=== PATIENT | female | born 1970 | race Caucasian/White ===

== ENCOUNTER 2016-07-12 13:23 | Outpatient (CLI) | payer BC | END 2016-07-12 13:24 | disposition home or self-care (01) | DX: Z12.31 Encounter for screening mammogram for malignant neoplasm of breast (principal) ==

== ENCOUNTER 2016-07-12 13:26 | Outpatient (CLI) | payer BC | END 2016-07-12 13:27 | disposition home or self-care (01) | DX: N92.1 Excessive and frequent menstruation with irregular cycle (principal); D25.1 Intramural leiomyoma of uterus; N85.8 Other specified noninflammatory disorders of uterus; N83.202 Unspecified ovarian cyst, left side ==

== ENCOUNTER 2016-11-18 10:06 | Outpatient (CLI) | payer BC ==
[2016-11-18 10:57] LABS: BASOPHILS % (AUTO) 0.7 %; EOSINOPHILS # (AUTO) 0.3 10^3/uL (0.0-0.7); EOSINOPHILS % (AUTO) 4.9 %; HCT - HEMATOCRIT 38.4 % (37.0-47.0); HGB - HEMOGLOBIN 13.3 g/dL (12.0-16.0); LYMPHOCYTES % (AUTO) 36.4 %; MEAN CORPUSCULAR HEMOGLOBIN 30.6 pg (27.0-31.0); MEAN CORPUSCULAR HGB CONC 34.7 g/dL (32.0-36.0); MEAN CORPUSCULAR VOLUME 88.3 fL (81.0-99.0); MEAN PLATELET VOLUME 8.1 fL (7.9-10.8); MONOCYTES # (AUTO) 0.4 10^3/uL (0.0-1.0); MONOCYTES % (AUTO) 7.6 %; NEUTROPHILS # (AUTO) 2.8 10^3/uL (1.5-6.6); NEUTROPHILS % (AUTO) 50.4 %; NUCLEATED RED BLOOD CELLS AUTO 0.1 /100WBC; RED BLOOD COUNT 4.35 10^6/uL (4.20-5.40); RED CELL DISTRIBUTION WIDTH 13.3 % (12.0-15.0); UNCORRECTED WHITE BLOOD COUNT 5.5 x10^3/uL; WHITE BLOOD COUNT 5.5 x10^3/uL (4.8-10.8)
[2016-11-18 11:12] LABS: CREATININE 0.8 mg/dL (0.4-1.0); POTASSIUM 3.4 mmol/L (3.5-5.0)
== END 2016-11-18 10:07 | disposition home or self-care (01) ==
LOC: LAB 10:06
PROVIDERS: ATTEND Obstetrics & Gynecology
DX: N92.5 Other specified irregular menstruation (principal)
CPT/HCPCS: 36415; 80048; 85025; 86850; 86900; 86901

== ENCOUNTER 2016-11-20 06:11 | Day surgery (SDC) | payer BC ==
--- NOTE | 2016-11-18 11:06 | PREOP HISTORY & PHYSICAL ---
DATE OF ADMISSION/SURGERY: 11/18/2016. IDENTIFICATION: The patient is a 45-year-old G3, P3 female who complains of heavy painful periods. HISTORY OF PRESENT ILLNESS: The patient states over the last year she has had progressively worse periods with pain. She relates that she will flow 7 days with heavy bleeding and change a pad or tampon every 2-4 hours. She will also pass clots with this. She denies any association with passage of clots, as well as her periods. She also complains of pain associated with this, which she grades at roughly a 7/10. She is utilizing Motrin for pain control. She states that ultrasound showed evidence of 2 intramural fibroids, as well as thickened endometrium. She had an endometrial biopsy performed, which was noted to be negative. Upon questioning, the patient denies any difficulty with stress urinary incontinence. She relates her last child weighed 9 pounds 2 ounces. PAST MEDICAL HISTORY: Positive for asthma. She also has a history of having a left lung spontaneous pneumothorax. SURGICAL HISTORY: Right knee surgery, as well as surgery to both left and right wrists. ALLERGIES 1. IVP. 2. SHE DOES HAVE SOME ITCHING WITH PERCOCET. CURRENT MEDICATIONS: Tylenol. HABITS: The patient smokes 10 cigarettes per day. Denies the use of tetrahydrocannabinol, alcohol, or other drugs. SOCIAL HISTORY: The patient has been twice. Currently living with a boyfriend. 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 FAMILY HISTORY: Positive for depression. REVIEW OF SYSTEMS: She wears glasses, but is negative for any cardiac, pulmonary , GI, or musculoskeletal issues. PHYSICAL EXAMINATION GENERAL: A well-developed, well-nourished, white female in no acute distress at this time. VITAL SIGNS: Today are normal. She denies any depression. Blood pressure is 120/ 80. BMI is 22.6. HEENT: Pupils are equal, round. Extraocular muscles are intact. There is no evidence of any scleral icterus. Mouth is clear. Thyroid is not palpably enlarged. HEART: Regular rate and rhythm without murmurs. LUNGS: Alonso are clear without rales or wheezes. ABDOMEN: Soft, nontender without evidence of any organomegaly. There is evidence of laparoscopic scars from previous tubal ligation. PELVIC: Pelvic examination previously performed revealed a uterus, which was 8 cm. There was no evidence of large cystoceles or rectoceles at this time. The adnexa were nontender. IMPRESSION 1. Menorrhagia. 2. Dysmenorrhea. PLAN: At this particular time, we will schedule the patient for a laparoscopic- assisted vaginal hysterectomy. Will choose to utilize a vaginal approach for closing the vaginal cuff in that she is a smoker and I am concerned about wound healing. Risks and benefits explained to the patient including those, but not limited to bleeding, infection, injury to the pelvic organs, which include the uterus, tubes, ovaries, bowel, bladder, and ureters. She is aware of the potential for DVT with PE, as well as postoperative adhesions, which could cause pain, bowel obstruction. She is also aware that she will never be able to be and she has also been told that I will guarantee she will never have another period, but I cannot totally guarantee that her pelvic pain will resolve. JOB #: [id number] EXT JOB #:[id number] JEFFREY
[2016-11-20] MEDS ORDERED: ceFAZolin 2 GM/50 ML 50 ML IV ONE (06:24)
[2016-11-20 06:40] LABS: HCG UR QUAL NEGATIVE
[2016-11-20] MEDS ORDERED: LACTATED RINGERS 1,000 ML IV ONE ×4 (06:48→14:46)
[2016-11-20] MEDS ORDERED: KETAMINE 500 MG/10 ML VIAL IVP ONE (07:30)
[2016-11-20] MEDS ORDERED: PROPOFOL 200 MG/20 ML VIAL IVP ONE (07:30)
[2016-11-20] MEDS ORDERED: ACETAMINOPHEN 1,000 MG/100 ML VIAL IV ONE (07:30)
[2016-11-20] MEDS ORDERED: PHENYLEPHRINE 50 MG/5 ML VIAL IV ONE (07:30)
[2016-11-20] MEDS ORDERED: LIDOCAINE-MPF 2% 5 ML VIAL IM ONE (07:30)
[2016-11-20] MEDS ORDERED: KETOROLAC 30 MG/ML VIAL IVP ONE (07:30)
[2016-11-20] MEDS ORDERED: SUCCINYLCHOLINE 200 MG/10 ML VIAL IVP ONE (07:30)
[2016-11-20] MEDS ORDERED: ROCURONIUM 50 MG/5 ML VIAL IVP ONE (07:30)
[2016-11-20] MEDS ORDERED: GLYCOPYRROLATE 1 MG/5 ML VIAL IVP ONE (07:30)
[2016-11-20] MEDS ORDERED: ONDANSETRON 4 MG/2 ML VIAL IVP ONE (07:30)
[2016-11-20] MEDS ORDERED: MIDAZOLAM 2 MG/2 ML VIAL IVP ONE (07:30)
[2016-11-20] MEDS ORDERED: DEXAMETHASONE 4 MG/ML VIAL IVP ONE (07:30)
[2016-11-20] MEDS ORDERED: NEOSTIGMINE 1 MG/1 ML 10 ML MDV IVP ONE (07:30)
[2016-11-20] MEDS ORDERED: BUPIVACAINE 0.25%-EPI 1:200000 PF 30 ML VIAL SUBQ ONE ×2 (08:15)
[2016-11-20] MEDS: fentaNYL 100 MCG/2 ML VIAL ONE ×2 (10:20→10:30)
[2016-11-20] MEDS ORDERED: HYDROmorphone 1 MG/ML SYRINGE ONE (10:42)
[2016-11-20] MEDS: HYDROmorphone 1 MG/ML SYRINGE ONE ×3 (11:09→12:07)
[2016-11-20] MEDS ORDERED: ONDANSETRON 4 MG/2 ML VIAL ONE (11:29)
[2016-11-20] MEDS ORDERED: HYDROcod/ACETAM 5/325 MG TABLET ONE (12:43)
[2016-11-20 15:50] VITALS: BP 102/60
--- NOTE | 2016-11-21 03:40 | OPERATIVE REPORT ---
DATE OF SURGERY: 11/20/2016 00:00:00 PREOPERATIVE DIAGNOSES 1. Menorrhagia. 2. Dysmenorrhea. 3. Fibroid uterus. POSTOPERATIVE DIAGNOSES 1. Menorrhagia. 2. Dysmenorrhea. 3. Submucosal fibroid uterus. 4. Multiple intramural fibroids. NAME OF PROCEDURE: Laparoscopically assisted vaginal hysterectomy with bilateral salpingectomy and cyto. SURGEON: Kana Thomas MD. EDUCATIONAL TECHNOLOGY SPECIALIST: Madeline Bullard MD. ANESTHESIA: Nithin Holder, general via endotracheal tube. FINDINGS: From entering the abdominal cavity, there was evidence of bilateral tubal ligation. There were cysts on both ovaries indicating that they are still functioning. There was evidence of multiple subserosal, as well as intramural fibroids. Upon opening the uterus on the table postoperatively, there was evidence of a submucosal fibroid at one of the cornus. COMPLICATIONS: None. ESTIMATED BLOOD LOSS: Roughly 500 mL. However, this was not what was sensed by the surgeon or anesthesia. SPECIMENS TO PATHOLOGY: Uterus and tubes. PROCEDURE: Following adequate endotracheal anesthesia, the patient was placed in the dorsolithotomy position in [facility]. A timeout was performed, at which time the patient was identified by name, as well as date of . Her allergies were reviewed, as well as the procedure. Pelvic examination under anesthesia revealed a uterus, which is in the pelvic cavity, did not appear to be grossly enlarged. The ovaries were not palpable either. The patient was then prepped and draped in the usual fashion. Speculum was placed into the vagina, cervix visualized, grasped with a single-tooth tenaculum and then sounded to 8 cm. It was dilated up to size [address] trocar was placed under direct visualization. The ctc operator's gloves were changed. Following this, local anesthesia of 0.25% Marcaine was used in the subumbilical area. A stab wound was made with a #11 blade and then a 5 mm trocar was placed under direct visualization. The abdominal cavity was then insufflated with carbon dioxide and 2 other ports placed both left and right lower quadrants. Local anesthesia with 0.25% Marcaine was utilized, as well as an incision with a #11 blade. Both trocars were placed under direct visualization. At this point, the pelvis was inspected, the patient was placed in steep Trendelenburg. The right tube was grasped and the mesosalpinx was cauterized with electrocautery. Care was taken to place this cautery as close to the tube as possible to decrease risk of compromise to the ovarian vessels. This portion of the tube had a peritubal cyst , was placed in the anterior cul-de-sac. The mesosalpinx and the remaining tube were then cauterized and transected. The utero-ovarian ligament, as well as the round ligament were then cauterized and transected. The broad ligament was then cauterized and transected utilizing the LigaSure. This was carried down to and across the lower portion of the uterus and to dissect the bladder off the lower portion of the uterus. The posterior leaf of the broad ligament was likewise cauterized and transected. The uterine vessels were then cauterized and transected. The left hand side was treated in the identical fashion. This was carried all the way down to the internal os of the cervix. The bladder was then both bluntly and sharply dissected from the lower uterine segment and cervix. At this point, there was some oozing and bleeding noted from the arcades of vessels on the left hand side of the uterus. Attempt was used to cauterize these ; however, it was felt that doing an expeditious vaginal hysterectomy would be the appropriate maneuver. The patient's legs were then brought up, the Lane catheter was deflated and removed, the cervix was grasped with double tooth tenaculum both anteriorly and posteriorly. The cervix was circumscribed with electrocautery and then the posterior cul-de-sac was entered using Martinez scissors. The posterior cuff was then reefed with 0 Vicryl, the uterosacral ligaments were cross clamped and ligated bilaterally with Laisha stitches and clamps. At this point, the Metzenbaum scissors were utilized to dissect the bladder off the lower uterine segment all the way until the peritoneal cavity was entered. The transverse cervical ligaments were then cross clamped with Laisha clamps, divided using Martinez scissors, and ligated with Laisha stitches of #0 Vicryl. Then, 2 additional clamps were placed on either side of the lower uterine segment and then these were transected with Martinez scissors and ligated with Laisha stitches of #0 Vicryl in the uterus and then removed and set aside. At this point, a Pfeiffer suture was placed, starting at the posterior vagina on the left hand side and included the left transverse cervical ligament and transversing high across the cul-de-sac including the right transverse cervical ligament and exiting the posterior vagina. This was not tied at this time. A pursestring of #4-0 Monocryl was placed and then tied down and the apex of the vagina was closed using figure 8's of 0 Vicryl; 0 Vicryl was used because of its duration and the fact that she was a cigarette smoker. Pfeiffer sutures were pulled down snug and pulled the vagina up into the pelvic cavity. At this point , the abdominal cavity was reinsufflated with CO2, it was inspected, there was no evidence of any bleeding. Photographs were taken. The scope was removed, the trocars removed, the CO2 was allowed to escape, and then the incision was closed using 4-0 Monocryl subcuticular with Dermabond being placed on top of this. A cystoscopy was then performed. There was evidence of good jets of urine from both ureters. The procedure was then terminated. The patient tolerated the procedure well and was taken to recovery in stable condition. Sponge and needle counts were correct. JOB #: [id number] EXT JOB #:[id number] JEFFREY
== END 2016-11-20 06:12 | disposition home or self-care (01) ==
LOC: SDS 06:11
PROVIDERS: ATTEND Obstetrics & Gynecology
PROC: 0UTC7ZZ Resection of Cervix, Via Natural or Artificial Opening (ICD-10-PCS; 2016-11-20)
PROC: 0UT7FZZ Resection of Bilateral Fallopian Tubes, Via Natural or Artificial Opening With Percutaneous Endoscopic Assistance (ICD-10-PCS; 2016-11-20)
PROC: 0UT9FZZ Resection of Uterus, Via Natural or Artificial Opening With Percutaneous Endoscopic Assistance (ICD-10-PCS; principal; 2016-11-20 07:30)
DX: N92.0 Excessive and frequent menstruation with regular cycle (principal); N94.6 Dysmenorrhea, unspecified; D25.1 Intramural leiomyoma of uterus; D25.0 Submucous leiomyoma of uterus; J45.909 Unspecified asthma, uncomplicated; F17.210 Nicotine dependence, cigarettes, uncomplicated; Z81.8 Family history of other mental and behavioral disorders
CPT/HCPCS: 81025; 88307

== ENCOUNTER 2016-11-25 12:16 | Emergency (ER) | payer BC | END 2016-11-25 15:45 | disposition home or self-care (01) | DX: R10.2 Pelvic and perineal pain (principal); F17.200 Nicotine dependence, unspecified, uncomplicated ==

== ENCOUNTER 2018-11-12 09:13 | Outpatient (CLI) | payer OTHER ==
--- NOTE | 2018-11-13 10:20 | Mammography Report ---
Reason: SCREENING MAMMOGRAM FOR BREAST CANCER Procedure Date: 11/12/2018 Accession Number: [id number] / [id number] Procedure: MGN - Screening Mammo Dig Bilat CPT Code: FULL RESULT: EXAM: Screening Mammo Dig Bilat DATE: 11/12/2018 9:34 AM CLINICAL HISTORY: Screening encounter. No reported risk factors. TECHNIQUE: (B) - Bilateral CC and MLO views were obtained. COMPARISON: 07/12/2016. PARENCHYMAL PATTERN: (A) - The breast(s) demonstrate(s) scattered fibroglandular densities. FINDINGS: The right breast demonstrates a new focal asymmetry in the lower inner quadrant, 3.4 cm from the nipple on the MLO view and 4.9 cm from the nipple on the cc view. This finding requires additional spot views as well as possibly ultrasound for clarification, ideally with the aid of 3-D mammography. There are no suspicious masses, calcifications, or areas of distortion in the left breast. IMPRESSION: Incomplete examination. BI-RADS category 0. RECOMMENDATION: (ADDMU) - Additional views using both Mammography and Ultrasound recommended. Spot views and ultrasound of the right breast. BI-RADS CATEGORY: (0) - Incomplete Examination - need additional evaluation. STANDARD QUALIFYING STATEMENTS: 1. This examination was not reviewed with the aid of Computer-Aided Detection (CAD). 2. A negative or benign imaging report should not preclude biopsy if clinically suspicious findings are present. 3. Dense breasts may obscure an underlying neoplasm. 4. This examination was reviewed without the aid of 3D breast imaging (tomosynthesis).
== END 2018-11-12 09:14 | disposition home or self-care (01) ==
LOC: DI.N 09:13
PROVIDERS: ATTEND Family Medicine
DX: Z12.31 Encounter for screening mammogram for malignant neoplasm of breast (principal)
CPT/HCPCS: 77067

== ENCOUNTER 2018-11-25 11:04 | Outpatient (CLI) | payer OTHER ==
--- NOTE | 2018-11-25 13:04 | Mammography Report ---
Reason: ABNORMAL MAMMOGRAM Procedure Date: 11/25/2018 Accession Number: [id number] / [id number] Procedure: FABIANO - Diag Special Views Dig RT CPT Code: FULL RESULT: EXAM: Diag Special Views Dig RT, Breast Unilateral Limited RIGHT DATE: 11/25/2018 12:05 PM CLINICAL HISTORY: Follow-up abnormal mammogram RIGHT ADDITIONAL VIEWS TECHNIQUE: (R) - Right CC and MLO views were obtained. COMPARISON: Mammogram 11/12/2018 PARENCHYMAL PATTERN: (A) - The breasts demonstrate scattered fibroglandular densities bilaterally. FINDINGS: The density described on the prior mammogram report in the medial inferior right breast dissipates on additional imaging. A nodular density in the right upper outer quadrant approximately 2 to 3 cm from the nipple is more apparent on the additional views. RIGHT BREAST ULTRASOUND TECHNIQUE: Targeted ultrasound was performed of the right breast in the area of clinical concern at 11:00 o'clock and 2 to 3 cm distance from the nipple. Color Doppler was employed as appropriate. FINDINGS: Corresponding to the mammographic abnormality is a 4 x 4 x 5 cm anechoic avascular lesion with increased through transmission consistent with a cyst. IMPRESSION: Probably Benign. BI-RADS category 3. Right breast RECOMMENDATION: (6MOS) - Recommend 6 month follow-up exam. Right mammogram BI-RADS CATEGORY: (3) - Probably Benign. STANDARD QUALIFYING STATEMENTS: 1. This examination was not reviewed with the aid of Computer-Aided Detection (CAD). 2. A negative or benign imaging report should not preclude biopsy if clinically suspicious findings are present. 3. Dense breasts may obscure an underlying neoplasm. 4. This examination was reviewed with the aid of 3D breast imaging (tomosynthesis).
== END 2018-11-25 11:05 | disposition home or self-care (01) ==
LOC: DI 11:04
PROVIDERS: ATTEND Family Medicine
DX: N63.10 Unspecified lump in the right breast, unspecified quadrant (principal)
CPT/HCPCS: 76642

== ENCOUNTER 2019-03-02 08:48 | Outpatient (CLI) | payer OTHER ==
[2019-03-02] MEDS ORDERED: GADOBUTROL 10 MMOL/10 ML VIAL IVP ONE (10:09)
[2019-03-02] MEDS ORDERED: GADOBUTROL 10 MMOL/10 ML VIAL ONE (10:11)
--- NOTE | 2019-03-02 10:44 | MRI Report ---
Reason: TREMOR, COMMON MIGRAINE Procedure Date: 03/02/2019 Accession Number: [id number] / [id number] Procedure: MRI - Brain W/WO CPT Code: FULL RESULT: EXAM: MRI BRAIN WITHOUT AND WITH CONTRAST EXAM DATE: 03/02/2019 10:16 AM. CLINICAL HISTORY: TREMOR, MIGRAINE headaches. COMPARISON: None. TECHNIQUE: Multiplanar, multisequence T1-weighted and fluid-sensitive MR sequences of the brain were performed before and after administration of intravenous contrast. Sequences optimized for routine evaluation. Other: None. IV Contrast: Yes, without and with 8 mL Gadavist. FINDINGS: Brain Volume: Normal for age. Parenchyma: No acute hemorrhage, mass, or infarct. No white matter lesions identified. No abnormal enhancement. Ventricles/Cisterns: No hydrocephalus. No abnormal extra-axial fluid collection or hemorrhage. Orbits: Symmetric and unremarkable. Sella Turcica: Unremarkable. IAC: Symmetric and unremarkable. Vasculature: Normal signal flow void is seen in the major arterial structures at the skull base. The dural sinuses are patent and enhance normally. Sinuses: No acute sinus disease. Bones: No focal pathologic appearing marrow signal changes. Other: None. IMPRESSION: 1. Normal brain MRI. RADIA
== END 2019-03-02 08:49 | disposition home or self-care (01) ==
LOC: DI 08:48
PROVIDERS: ATTEND Family Medicine
DX: R25.1 Tremor, unspecified (principal); G43.009 Migraine without aura, not intractable, without status migrainosus
CPT/HCPCS: 70553; A9585

== ENCOUNTER 2019-04-17 16:24 | Outpatient (CLI) | payer OTHER ==
[2019-04-17] MEDS ORDERED: GADOBUTROL 15 MMOL/15 ML VIAL ONE (16:37)
[2019-04-17] MEDS ORDERED: GADOBUTROL 10 MMOL/10 ML VIAL ONE (17:43)
[2019-04-17] MEDS ORDERED: GADOBUTROL 10 MMOL/10 ML VIAL IVP ONE (17:52)
--- NOTE | 2019-04-18 06:38 | MRI Report ---
Reason: PARESTHESIAS, HYPERREFLEXIA, RYAN REFLEX POSIT Procedure Date: 04/17/2019 Accession Number: [id number] / [id number] Procedure: MRI - Cervical Spine W/WO CPT Code: Final Report FULL RESULT: EXAM: MRI CERVICAL SPINE WITHOUT AND WITH CONTRAST EXAM DATE: 04/17/2019 04:57 PM. CLINICAL HISTORY: PARESTHESIAS, HYPERREFLEXIA, RYAN REFLEX POSIT. COMPARISON: None. TECHNIQUE: Multiplanar, multisequence T1-weighted and fluid-sensitive sequences of the cervical spine before and after administration of intravenous contrast. Other: None. IV contrast: Gadavist, 10 mL. FINDINGS: Neurologic Structures: The visualized posterior fossa structures are unremarkable. No signal abnormality or pathologic enhancement in the visualized spinal cord. Alignment: No scoliosis or spondylolisthesis. Bone Marrow: No gross fractures or bone lesions. No marrow edema or abnormal enhancement. Interspace Levels/Facets: C1-C2: Unremarkable. C2-C3: Unremarkable. C3-C4: Unremarkable. C4-C5: Mild disc height loss is visualized. Posterior disk osteophyte complex minimally indents the ventral thecal sac. There is no significant central canal or neuroforaminal stenosis. C5-C6: Moderate disc height loss is visualized. Posterior disk osteophyte complex mildly indents the ventral thecal sac and abuts the spinal cord. AP canal diameter measures approximately 8 mm and there is partial effacement of CSF signal. Uncovertebral hypertrophy produces moderate bilateral foraminal stenosis. C6-C7: Mild disc height loss is visualized. Posterior disk osteophyte complex mildly indents the ventral thecal sac. Minimal central canal and neuroforaminal narrowing is noted. C7-T1: Unremarkable. Spinal Canal: No enhancing lesions within the spinal canal. No epidural abscess. Musculature: Normal. No edema, enhancement, or fatty atrophy. Other: IMPRESSION: 1. No evidence of acute pathology in the cervical spine. 2. Mild to moderate cervical spondylosis, as outlined in detail above, most pronounced at the C5-C6 level where findings produce moderate central canal and bilateral foraminal stenosis. No significant cord compression or evidence of compressive myelopathy. RADIA
--- NOTE | 2019-04-18 06:38 | MRI Report ---
Reason: PARESTHESIAS, HYPERREFLEXIA, RYAN REFLEX POSIT Procedure Date: 04/17/2019 Accession Number: [id number] / [id number] Procedure: MRI - Thoracic Spine W/WO CPT Code: Final Report FULL RESULT: EXAM: MRI THORACIC SPINE WITHOUT AND WITH CONTRAST EXAM DATE: 04/17/2019 06:14 PM. CLINICAL HISTORY: PARESTHESIAS, HYPERREFLEXIA, RYAN REFLEX POSIT. COMPARISONS: None. TECHNIQUE: Multiplanar, multisequence T1-weighted and fluid-sensitive sequences of the thoracic spine from C7 to L1 before and after administration of intravenous contrast. Other: None. IV contrast: Gadavist, 10 mL. FINDINGS: Spinal Cord: No signal abnormality or pathologic enhancement in the visualized spinal cord. Alignment: No scoliosis or spondylolisthesis. Bone Marrow: No gross fractures or bone lesion. No bone marrow edema or abnormal enhancement. Disk Levels/Facets: C7-T1: Unremarkable. T1-T2: Unremarkable. T2-T3: Unremarkable. T3-T4: Unremarkable. T4-T5: Unremarkable. T5-T6: Unremarkable. T6-T7: Unremarkable. T7-T8: Unremarkable. T8-T9: Unremarkable. T9-T10: Unremarkable. T10-T11: Unremarkable. T11-T12: Unremarkable. T12-L1: Unremarkable. Spinal Canal: No enhancing masses within the spinal canal. No epidural abscess. Musculature: Normal. No edema, enhancement, or fatty atrophy. Other: The visualized lungs, mediastinum, and abdominal cavity are unremarkable. IMPRESSION: 1. No evidence of acute pathology in the thoracic spine. RADIA
== END 2019-04-17 16:25 | disposition home or self-care (01) ==
LOC: DI 16:24
PROVIDERS: ATTEND Psychiatry & Neurology Neurology
DX: M47.812 Spondylosis without myelopathy or radiculopathy, cervical region (principal); M48.02 Spinal stenosis, cervical region; R20.2 Paresthesia of skin; R29.2 Abnormal reflex; R39.198 Other difficulties with micturition
CPT/HCPCS: 72156; 72157; A9585

== ENCOUNTER 2019-05-28 17:48 | Outpatient (CLI) | payer OTHER ==
--- NOTE | 2019-05-29 10:32 | MRI Report ---
Reason: STENOSIS W/ NEUROGENIC CLAUDICATION, RADICULOPATHY Procedure Date: 05/28/2019 Accession Number: [id number] / [id number] Procedure: MRI - Lumbar Spine W/O CPT Code: Final Report FULL RESULT: EXAM: MRI LUMBAR SPINE WITHOUT CONTRAST EXAM DATE: 05/28/2019 06:30 PM. CLINICAL HISTORY: Stenosis with neurogenic claudication, radiculopathy. COMPARISON: THORACIC SPINE W/WO 04/17/2019 5:21 PM. TECHNIQUE: Multiplanar, multisequence T1-weighted and fluid-sensitive sequences of the lumbar spine from T12 to S1 without contrast. Other: None. FINDINGS: No abnormal signal is seen in the conus medullaris. No suspicious marrow replacement is seen. Facet/ligamentum flavum hypertrophy is seen throughout the lumbar spine. This is moderate at L3-L4 and L4-L5. There is patchy T2 hypointense signal in the disk space from L3-S1 without significant loss of disk space height. L1-L3: No posterior disk protrusion. L3-L4: Minimal circumferential disk protrusion. L4-L5: Minimal to mild circumferential disk protrusion. L5-S1: Minimal circumferential disk protrusion. No central canal or foraminal stenosis is present. There is a well-circumscribed 6-7 mm T2 hyperintensity which is seen just posterior to the right L4 nerve root as it exits the L4-L5 foramen. This is seen just lateral to the facet joint. There is no mass effect on the right L4 nerve root. IMPRESSION: 1. Minimal degenerative disk disease at L3-L4 and L5-S1 and minimal to mild degenerative disk disease at L4-L5. 2. No central canal or foraminal stenosis. 3. No abnormal signal is seen in the conus medullaris. 4. A synovial cyst of the right facet joint is favored over a nerve root sleeve cyst at L4-L5 5. Moderate facet/ligamentum flavum hypertrophy in the mid and lower lumbar spine greatest at L3-L4 and L4-L5. Comment: The following findings are so common in adults without low back pain that while we report their presence, they must be interpreted with caution and in the context of the clinical situation. (Reference Chavezk et al, Spine 2001) Prevalence of findings in patients without low back pain: Disk degeneration (any evidence): 92% Disk desiccation/T2 signal loss: 83% Disk height loss: 56% Disk bulge: 64% Disk protrusion: 32% Annular tear/high intensity zone: 38% RADIA
== END 2019-05-28 17:49 | disposition home or self-care (01) ==
LOC: DI 17:48
PROVIDERS: ATTEND Electrodiagnostic Medicine
DX: M51.26 Other intervertebral disc displacement, lumbar region (principal); M51.27 Other intervertebral disc displacement, lumbosacral region; M51.36 Other intervertebral disc degeneration, lumbar region; M51.37 Other intervertebral disc degeneration, lumbosacral region; M47.816 Spondylosis without myelopathy or radiculopathy, lumbar region
CPT/HCPCS: 72148

== ENCOUNTER 2019-06-23 12:30 | Outpatient (CLI) | payer OTHER ==
--- NOTE | 2019-06-23 14:43 | Mammography Report ---
Reason: ABN MAMMO 6 MO FU - RT BREAST NODULE Procedure Date: 06/23/2019 Accession Number: [id number] / [id number] Procedure: FABIANO - Diagnostic Dig RT CPT Code: Final Report FULL RESULT: EXAM: Diagnostic Dig RT DATE: 06/23/2019 1:10 PM CLINICAL HISTORY: Diagnostic examination. TECHNIQUE: (R) - Right CC and MLO views were obtained. Right spot CC and right ML images are obtained. Focused right breast ultrasound is performed. COMPARISON: 11/25/2018 through 07/12/2016. PARENCHYMAL PATTERN: (A) - The breast(s) demonstrate(s) scattered fibroglandular densities. FINDINGS: Sonographically, in the upper outer right breast at 11-12 o'clock is a 0.5 cm overall size well-circumscribed septated cluster of cysts with increased through transmission and no convincing solid component which individually measure between 0.2 and 0.3 cm approximately 2 to 3 cm from the nipple. Mammographically on right MLO image 47 right CC image 43, the corresponding nodule has not significantly changed but is better visualized on today's exam, probably benign. There are no suspicious masses, calcifications, or areas of distortion. IMPRESSION: Probably Benign. BI-RADS category 3. RECOMMENDATION: (6MOS) - Recommend 6 month follow-up exam. At the time of left breast annual screening mammography, ultrasound and mammogram. BI-RADS CATEGORY: (3) - Probably Benign. STANDARD QUALIFYING STATEMENTS: 1. This examination was not reviewed with the aid of Computer-Aided Detection (CAD). 2. A negative or benign imaging report should not preclude biopsy if clinically suspicious findings are present. 3. Dense breasts may obscure an underlying neoplasm. 4. This examination was reviewed with the aid of 3D breast imaging (tomosynthesis).
== END 2019-06-23 12:31 | disposition home or self-care (01) ==
LOC: DI 12:30
PROVIDERS: ATTEND Family Medicine
DX: N63.10 Unspecified lump in the right breast, unspecified quadrant (principal); R92.8 Other abnormal and inconclusive findings on diagnostic imaging of breast
CPT/HCPCS: 76642

== ENCOUNTER 2019-07-02 09:57 | Outpatient (CLI) | payer OTHER ==
[2019-07-02 12:42] LABS: BASOPHILS % (AUTO) 0.6 %; EOSINOPHILS # (AUTO) 0.2 10^3/uL (0.0-0.7); EOSINOPHILS % (AUTO) 2.3 %; LYMPHOCYTES # (AUTO) 1.7 10^3/uL (1.5-3.5); LYMPHOCYTES % (AUTO) 25.1 %; MEAN CORPUSCULAR HEMOGLOBIN 30.4 pg (27.0-31.0); MEAN CORPUSCULAR HGB CONC 32.9 g/dL (32.0-36.0); MEAN CORPUSCULAR VOLUME 92.4 fL (81.0-99.0); MEAN PLATELET VOLUME 9.5 fL (7.9-10.8); MONOCYTES # (AUTO) 0.5 10^3/uL (0.0-1.0); MONOCYTES % (AUTO) 7.6 %; NEUTROPHILS # (AUTO) 4.4 10^3/uL (1.5-6.6); NEUTROPHILS % (AUTO) 63.8 %; PLT - PLATELET COUNT 247 10^3/uL (130-450); RED CELL DISTRIBUTION WIDTH 13.1 % (12.0-15.0); WHITE BLOOD COUNT 6.9 x10^3/uL (4.8-10.8)
[2019-07-02 13:13] LABS: ALBUMIN 4.2 g/dL (3.2-5.5); ALBUMIN/GLOBULIN RATIO 1.6 (1.0-2.2); BILIRUBIN,TOTAL 0.3 mg/dL (0.2-1.0); CALCIUM 9.1 mg/dL (8.5-10.3); CREATININE 0.8 mg/dL (0.4-1.0); MAGNESIUM 2.3 mg/dL (1.7-2.8); PHOSPHORUS 2.5 mg/dL (2.5-4.6); TOTAL PROTEIN 6.8 g/dL (6.7-8.2)
== END 2019-07-02 23:59 | disposition home or self-care (01) ==
LOC: LAB.WCP 09:57
PROVIDERS: ATTEND Family Medicine
DX: Z00.00 Encounter for general adult medical examination without abnormal findings (principal); R60.9 Edema, unspecified; R07.9 Chest pain, unspecified
CPT/HCPCS: 36415; 80053; 83735; 84100; 84443; 85025

== ENCOUNTER 2019-07-14 12:53 | Outpatient (CLI) | payer OTHER ==
[2019-07-14 14:00] LABS: CRP - C-REACTIVE PROTEIN < 1.0 mg/dL (0-1.0); URIC ACID 3.3 mg/dL (2.6-7.2)
[2019-07-14 14:11] LABS: RHEUMATOID FACTOR NEGATIVE (Negative)
== END 2019-07-14 12:54 | disposition home or self-care (01) ==
LOC: LAB 12:53
PROVIDERS: ATTEND Family Medicine
DX: M25.50 Pain in unspecified joint (principal)
CPT/HCPCS: 36415; 84550; 85651; 86140; 86200; 86430

== ENCOUNTER 2019-07-14 12:58 | Outpatient (CLI) | payer OTHER ==
--- NOTE | 2019-07-16 14:15 | XRAY Report ---
Reason: BILAT KNEE PAIN Procedure Date: 07/14/2019 Accession Number: [id number] / [id number] Procedure: XR - Knee 2 View BILAT CPT Code: Final Report FULL RESULT: EXAMS: 1. RIGHT KNEE RADIOGRAPHY 2. LEFT KNEE RADIOGRAPHY EXAM DATE:07/14/2019 01:32 PM. CLINICAL HISTORY:Bilateral knee pain. COMPARISON: None. TECHNIQUE: 2 views each. FINDINGS: There is mild narrowing of the medial compartments of the knees. No significant osteophytic spurring. No suprapatellar joint effusions. No fractures. No chondrocalcinosis or subcutaneous radiopaque foreign bodies. IMPRESSION: Mild degenerative changes at the medial compartments of the knees. RADIA
== END 2019-07-14 12:59 | disposition home or self-care (01) ==
LOC: DI 12:58
PROVIDERS: ATTEND Family Medicine
DX: M17.0 Bilateral primary osteoarthritis of knee (principal); M25.50 Pain in unspecified joint
CPT/HCPCS: 36415; 73565; 84550; 85651; 86140; 86200; 86430

== ENCOUNTER 2019-09-30 08:00 | Outpatient (CLI) | payer OTHER ==
[2019-09-30 18:21] LABS: CALCIUM 9.7 mg/dL (8.5-10.3); CREATININE 0.9 mg/dL (0.4-1.0)
== END 2019-09-30 23:59 | disposition home or self-care (01) ==
LOC: LAB.WCP 08:00
PROVIDERS: ATTEND Family Medicine
DX: R06.9 Unspecified abnormalities of breathing (principal)
CPT/HCPCS: 36415; 80048

== ENCOUNTER 2019-12-27 15:10 | Emergency (ER) | payer OTHER ==
[2019-12-27] MEDS ORDERED: HYDROcod/ACETAM 5/325 MG TABLET PO STA (15:34)
--- NOTE | 2019-12-27 15:37 | ED Physician Documentation ---
History of Present Illness - Stated complaint Stated Complaint: LT KNEE PX - Chief complaint Chief Complaint: Ext Problem - History obtained from History obtained from: Patient - Additonal information Additional information: She had several months worth of worsening knee pain. Especially on the left. She was seen here 2 days ago and It was felt that she had a meniscal tear. She had x-rays showing arthritis 6 months ago. Pain is worse over the last 2 days with worse swelling. She can barely walk. There is no fevers or chills. 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 : None HEENT: Other Psych: None Musculoskeletal: Osteoarthritis Derm: None - Past Surgical History Past Surgical History: Yes Ortho: Arthroscopic surgery, Other /CASTING PLUG ASSEMBLER: Tubal ligation, Hysterectomy - Present Medications Home Medications: Ambulatory Orders Medication Instructions Recorded Confirmed Acetaminophen [Tylenol] 650 mg PO Q6H PRN 11/18/16 11/20/16 Ciprofloxacin HCl [Cipro] 500 mg PO BID #14 tablet 11/25/16 Fluconazole [Diflucan] 150 mg PO ONCE #1 tablet 11/25/16 Hydrocodone/Acetaminophen 1 each PO Q6H PRN #15 tablet 11/25/16 [Hydrocodon-Acetaminophn 10-325] Ibuprofen [Motrin] 1 tab TID PRN 11/25/16 11/25/16 Stool Softener 11/25/16 metroNIDAZOLE [Flagyl] 500 mg PO TID #20 tablet 11/25/16 Albuterol Sulf [Ventolin Hfa 1 - 2 puffs INH Q4HR PRN #1 inhaler 09/29/17 Inhaler] Cetirizine [ZyrTEC] 10 mg PO DAILY #15 tablet 09/29/17 Famotidine [Pepcid] 20 mg PO ONCE #15 tablet 09/29/17 dexAMETHasone [Decadron] 4 mg PO DAILY #5 tablet 09/29/17 Meloxicam [Mobic] 15 mg PO DAILY PRN #20 tablet 12/25/19 Hydrocodone/Acetaminophen 1 - 2 tab PO Q6H PRN #20 tablet 12/27/19 [Hydrocodone-Acetamin 5-325 mg] - Allergies Allergies/Adverse Reactions: Allergies Allergy/AdvReac Type Severity Reaction Status Date / Time contrast dye Allergy Unknown Rash Uncoded 12/25/19 16:30 - Social History Does the pt smoke?: Yes Smoking Status: Current every day smoker Does the pt drink ETOH?: Yes Does the pt have substance abuse?: No - Immunizations Immunizations are current?: Yes - POLST Patient has POLST: No PD ED PE NORMAL - Vitals Vital signs reviewed: Yes - General General: Alert and oriented X 3, No acute distress - Extremities Extremities: Other (There is a modest effusion of the left knee, tender over the medial joint line. A lot of pain with both MCL and grind testing.) - Neuro Neuro: Alert and oriented X 3, Normal speech Results - Vitals Vitals: Vital Signs - 24 hr 12/27/19 12/27/19 15:12 16:32 Temperature 37.5 C Heart Rate 75 59 L Respiratory 18 Rate Blood Pressure 122/79 125/77 O2 Saturation 97 97 Oxygen O2 Source Room air - Rads (name of study) L knee XR Radiology: EMP read contemporaneously (mild OA) PD MEDICAL DECISION MAKING - ED course ED course: 49-year-old woman with a left knee internal derangement. X-rays showing mild osteoarthritis. We will give some pain medication on top of the anti- inflammatories she Placido has and she has an appointment with orthopedics. Departure - Departure Disposition: 01 Home, Self Care Clinical Impression: Injury of meniscus of left knee Qualifiers: Encounter type: initial encounter Qualified Code(s): S83.8X2A - Sprain of other specified parts of left knee, initial encounter Condition: Good Record reviewed to determine appropriate education?: Yes Instructions: ED Meniscal Injury Knee Poss Prescriptions: Hydrocodone/Acetaminophen [Hydrocodone-Acetamin 5-325 mg] 1 - 2 tab PO Q6H PRN #20 tablet PRN Reason: Pain Comments: Follow-up with the orthopedic surgeon as scheduled. You can use the prescription pain medication in addition to the anti-inflammatory that you were given the other day. Do not drive or drink or drive with this prescription. Return for new or worsening symptoms. You can walk and bear weight as tolerated using the splint you already have. X-rays showed mild osteoarthritis of the knee, no this study would not identify a specific meniscal injury. Forms: Activity restrictions Discharge Date/Time: 12/27/19 16:38
--- NOTE | 2019-12-27 16:19 | XRAY Report ---
PROCEDURE: Knee 4 View LT INDICATIONS: L knee pain TECHNIQUE: 4 views of the left knee(s) were acquired. COMPARISON: None. FINDINGS: Bones: No fractures or dislocations. No suspicious bony lesions. Mild tricompartmental periarticul ar osteophyte formation. Soft tissues: No joint effusion. No suspicious soft tissue calcifications. IMPRESSION: Mild osteoarthritis. No acute fracture. No osseous lesion. If symptoms and/or clinical s uspicion for pathology continue, further assessment with repeat plain films, or advanced imaging (e.g ., CT, MRI, or bone scan) is recommended for further assessment. Reviewed by: Lorrie Arechiga MD on 12/27/2019 4:18 PM PDT Approved by: Lorrie Arechiga MD on 12/27/2019 4:18 PM PDT Station ID: [id number]
[2019-12-27 16:38] VITALS: BP 125/77
== END 2019-12-27 16:38 | disposition home or self-care (01) ==
LOC: ED 15:10
DX: S83.8X2A Sprain of other specified parts of left knee, initial encounter (principal); X58.XXXA Exposure to other specified factors, initial encounter; M17.12 Unilateral primary osteoarthritis, left knee; F17.200 Nicotine dependence, unspecified, uncomplicated
CPT/HCPCS: 73564; 99283; A9270

== ENCOUNTER 2020-03-24 12:30 | Outpatient (CLI) | payer OTHER ==
--- NOTE | 2020-03-27 16:39 | Ultrasound Report ---
LIMITED ULTRASOUND OF RIGHT BREAST: 03/24/2020 CLINICAL: Patient returns for additional imaging over a suspected mass in the right breast. Comparison is made to exams dated: 03/24/2020 mammogram, 06/23/2019 mammogram, 06/23/2019 ultrasound, 11/25/2018 mammogram, 11/12/2018 mammogram, and 11/25/2018 ultrasound - [facility]. Color flow and real-time ultrasound of the right breast 3 o'clock and 12 o'clock regions were perform ed on the areas of interest. There is a 0.3 cm x 0.4 cm x 0.4 cm oval cyst with a septated internal wall in the right breast at 12 o'clock anterior depth. This oval cyst is hypoechoic with a well-defined boundary and posterior aco ustic enhancement. This abnormality is not significantly changed and correlates with mammography fin dings. Color flow imaging demonstrates that there is no vascularity present. IMPRESSION: PROBABLY BENIGN The 0.3 cm x 0.4 cm x 0.4 cm oval cyst in the right breast is consistent with a complicated cyst and is probably benign. Follow-up mammogram and ultrasound in 6 months is recommended. A follow-up mammogram and an ultrasound in 6 months are recommended to demonstrate stability. Patien t will be due for screening mammography of the contralateral breast at that time. This exam was interpreted at Station ID: [id number]. Electronically Signed By: Heber Can M.D. ddp/:03/24/2020 15:25:30 Ultrasound BI-RADS: 3 Probably benign BI-RADS CATEGORY: (3) - 3 Mammo and [place] [id number] 6 month follow-up LATERALITY: (B)
--- NOTE | 2020-03-27 16:39 | Mammography Report ---
BILATERAL DIGITAL DIAGNOSTIC MAMMOGRAM 3D/2D: 03/24/2020 CLINICAL: Patient returns today to evaluate a focal asymmetry in the right breast. Comparison is made to exams dated: 06/23/2019 mammogram, 06/23/2019 ultrasound, 11/25/2018 mammogram, 11/25/2018 ultrasound, 11/12/2018 mammogram, and 07/12/2016 mammogram - [facility]. Ther e are scattered fibroglandular elements in both breasts. There is an oval low density asymmetry with an indistinct margin in the right breast at 1 o'clock ant erior depth. This is not significantly changed. No other significant masses, calcifications, or other findings are seen in either breast. IMPRESSION: INCOMPLETE: NEEDS ADDITIONAL IMAGING EVALUATION The oval low density asymmetry in the right breast is indeterminate. An ultrasound is recommended. This exam was interpreted at Station ID: [id number]. NOTE: For mammograms, a report in lay terms will be sent to the patient. Approximately 15% of breast malignancies will not be visualized mammographically. In the management of a palpable breast mass, a negative mammogram must not discourage biopsy of a clinically suspicious lesion. Electronically Signed By: Heber Can M.D. ddp/penrad:03/24/2020 13:50:42 ACR BI-RADS Category 0: Incomplete 3340F PARENCHYMAL PATTERN: (A) - The breast(s) demonstrate(s) scattered fibroglandular densities. BI-RADS CATEGORY: (0) - 0 Ultrasound [id number] Immediate follow-up LATERALITY: (B)
== END 2020-03-24 12:31 | disposition home or self-care (01) ==
LOC: DI 12:30
PROVIDERS: ATTEND Family Medicine
DX: N60.01 Solitary cyst of right breast (principal)
CPT/HCPCS: 76642; 77066

== ENCOUNTER 2020-06-15 13:50 | Outpatient (CLI) | payer OTHER ==
--- NOTE | 2020-06-15 17:09 | MRI Report ---
PROCEDURE: Knee LT W/O INDICATIONS: LT KNEE SPRAIN, LT KNEE INTERNAL DERANGEMENT TECHNIQUE: Noncontrast sagittal PD fast spin echo and T2 fast spin echo with fat saturation, sagittal 3-D gradie nt sequence with fat saturation; coronal T1 spin echo and PD fast spin echo with fat saturation, and axial PD fast spin echo with fat saturation through the knee. COMPARISON: None. FINDINGS: Image quality: Excellent. Menisci: The medial and lateral menisci demonstrate normal morphology and internal signal. The meni scal root ligaments appear intact. Cruciate ligaments: The anterior and posterior cruciate ligaments appear intact. Medial structures: The medial collateral ligament appears intact. The posterior oblique ligament, s emimembranosus tendon insertions, and oblique popliteal ligament, and meniscocapsular junction appear intact. Visualized portions of the pes anserinus tendons appear normal. No abnormal bursal fluid. Lateral structures: The lateral collateral ligament, long and short heads of the biceps femoris tend on appear intact. The popliteus tendon appears normal; the popliteofibular ligament appears intact. The posterosuperior and anteroinferior popliteomeniscal fascicles appear intact. The arcuate and fa bellofibular ligaments appear intact, around the lateral inferior geniculate artery. Iliotibial band appears normal. Anterior structures: The quadriceps and patellar tendons appear intact. Patellar alignment is alfred l. No femoral trochlear dysplasia or ventral trochlear prominence. No edema in the infrapatellar fa t pad. Bones and cartilage: No bone marrow contusions or fractures. The cartilage of the medial and latera l femorotibial compartments, as well as the patellofemoral compartment, appears normal in thickness. Joint space: There is physiologic knee joint fluid. No Guallpa?s cyst. Normal appearing synovial pli are incidentally noted. IMPRESSION: This is a normal study. Reviewed by: Prem Reeves MD on 06/15/2020 5:07 PM PST Approved by: Prem Reeves MD on 06/15/2020 5:07 PM PST Station ID: [id number]
== END 2020-06-15 13:51 | disposition home or self-care (01) ==
LOC: DI 13:50
PROVIDERS: ATTEND Physician Assistant
DX: M17.12 Unilateral primary osteoarthritis, left knee (principal); M94.262 Chondromalacia, left knee; M71.22 Synovial cyst of popliteal space [Baker], left knee; M23.92 Unspecified internal derangement of left knee; S83.8X2A Sprain of other specified parts of left knee, initial encounter

== ENCOUNTER 2021-04-19 23:10 | Outpatient (CLI) | payer OTHER | END 2021-04-19 23:59 | disposition critical access hospital (66) | LOC: EMS 23:10 | DX: R10.30 Lower abdominal pain, unspecified (principal) | CPT/HCPCS: A0425; A0427 ==

== ENCOUNTER 2021-04-19 23:29 | Day surgery (SDC) | payer OTHER ==
--- NOTE | 2021-04-19 23:41 | ED Physician Documentation ---
PD HPI ABD PAIN - Stated complaint Stated Complaint: ABD PAIN - Chief complaint Chief Complaint: Abd Pain - History obtained from History obtained from: Patient, EMS - History of Present Illness Timing - onset: Enter time (20:30), Today Timing - details: Abrupt onset Pain level now: 6 Quality: Pain Location: All over / everywhere (predominantly periumbilical and RLQ) Improved by: Laying still Worsened by: Moving, Breathing, Palpation Associated symptoms: Nausea. No: Fever, Vomiting, Diarrhea, Constipation Similar symptoms before: Has not had sx before Recently seen: Not recently seen - Additional information Additional information: BIBA for abdominal pain that is diffuse but predominantly periumbilical and RLQ. The pain woke her from sleep at 8:30 PM tonight. She had gone to sleep at 4:30 PM and felt well at that time. Denies h/o similar symptoms. Review of Systems Constitutional: reports: Reviewed and negative Eyes: reports: Reviewed and negative Ears: reports: Reviewed and negative Nose: reports: Reviewed and negative Throat: reports: Reviewed and negative Cardiac: reports: Reviewed and negative Respiratory: reports: Reviewed and negative GI: reports: Abdominal Pain, Nausea. 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 : None HEENT: Other Psych: None Musculoskeletal: Osteoarthritis Derm: None - Past Surgical History Past Surgical History: Yes Ortho: Arthroscopic surgery, Other /COMPOSITION SIDING WORKER: Tubal ligation, Hysterectomy - Present Medications Home Medications: Ambulatory Orders Medication Instructions Recorded Confirmed Albuterol Sulf [Ventolin Hfa 1 - 2 puffs INH Q4HR PRN #1 inhaler 09/29/17 04/19/21 Inhaler] buPROPion [Wellbutrin Sr] 150 mg PO DAILY 04/19/21 04/19/21 Amox/Clav 875/125 [Augmentin 1 tablet PO Q12H 2 Days #4 tablet 04/20/21 875/125 Tab] Docusate Sodium 100Mg Capsule 200 mg PO DAILY #10 cap 04/20/21 [Colace 100Mg Capsule] Ondansetron Odt [Zofran Odt] 4 mg TL Q6H PRN #10 tablet 04/20/21 oxyCODONE [Roxicodone] 5 mg PO Q4-6H PRN #10 tablet 04/20/21 - Allergies Allergies/Adverse Reactions: Allergies Allergy/AdvReac Type Severity Reaction Status Date / Time contrast dye Allergy Unknown Rash Uncoded 04/20/21 06:21 - Social History Does the pt smoke?: Yes Smoking Status: Current every day smoker Does the pt drink ETOH?: Yes Does the pt have substance abuse?: No - Immunizations Immunizations are current?: Yes - POLST Patient has POLST: No PD ED PE NORMAL - Vitals Vital signs reviewed: Yes - General General: Alert and oriented X 3, Well developed/nourished, Other (appears to be in painful distress) - HEENT HEENT: Other (tacky/pasty mucous membranes) - Neck Neck: Supple, no meningeal sign - Cardiac Cardiac: RRR, No murmur, No gallop, No rub - Respiratory Respiratory: No respiratory distress, Clear bilaterally - Abdomen Abdomen: Soft, Non distended, Other (diffuse TTP with rebound and guarding) - Back Back: No CVA TTP - Derm Derm: Normal color, Warm and dry Results - Vitals Vitals: Vital Signs - 24 hr 04/19/21 04/20/21 04/20/21 23:35 02:12 05:27 Temperature 37.4 C 37.1 C Heart Rate 83 81 84 Respiratory 16 18 16 Rate Blood Pressure 142/89 H 115/74 117/76 O2 Saturation 96 95 94 Oxygen O2 Source Room air - Labs Labs: Laboratory Tests 04/20/21 04/20/21 04/20/21 00:15 00:15 01:25 WBC 11.7 H RBC 4.35 Hgb 13.4 Hct 39.7 MCV 91.3 MCH 30.8 MCHC 33.8 RDW 12.5 Plt Count 214 MPV 9.1 Neut # (Auto) 9.3 H Lymph # (Auto) 1.4 L [place] # (Auto) 0.8 Eos # (Auto) 0.2 Baso # (Auto) 0.0 Absolute Nucleated RBC 0.00 Nucleated RBC % 0.0 Sodium 136 Potassium 4.0 Chloride 103 Carbon Dioxide 24 Anion Gap 9.0 BUN 16 Creatinine 0.9 Estimated GFR (MDRD) 66 L Glucose 107 H Calcium 8.9 Total Bilirubin 0.3 AST 18 ALT 19 Alkaline Phosphatase 55 Total Protein 6.3 L Albumin 3.8 Globulin 2.5 Albumin/Globulin Ratio 1.5 Lipase 35 Urine Color YELLOW Urine Clarity CLEAR Urine pH 7.0 Ur Specific [place] 1.020 Urine Protein NEGATIVE Urine Glucose (UA) NEGATIVE Urine Ketones NEGATIVE Urine Occult Blood NEGATIVE Urine Nitrite NEGATIVE Urine Bilirubin NEGATIVE Urine Urobilinogen 0.2 (NORMAL) Ur Leukocyte Esterase NEGATIVE Ur Microscopic Review NOT INDICATED Urine Culture Comments NOT INDICATED Nasal Adenovirus (PCR) Nasal B. parapertussis DNA (PCR) Nasal Coronavir 229E PCR Nasal Coronavir HKU1 PCR Nasal Coronavir NL63 PCR Nasal Coronavir OC43 PCR Nasal Enterovir/Rhinovir PCR Nasal Influenza B PCR Nasal Influenza A PCR Nasal Parainfluen 1 PCR Nasal Parainfluen 2 PCR Nasal Parainfluen 3 PCR Nasal Parainfluen 4 PCR Nasal RSV (PCR) Nasal B.pertussis DNA PCR Nasal C.pneumoniae (PCR) Carlos Human Metapneumo PCR Nasal M.pneumoniae (PCR) Nasal SARS-CoV-2 (PCR) 04/20/21 03:02 WBC RBC Hgb Hct MCV MCH MCHC RDW Plt Count MPV Neut # (Auto) Lymph # (Auto) [place] # (Auto) Eos # (Auto) Baso # (Auto) Absolute Nucleated RBC Nucleated RBC % Sodium Potassium Chloride Carbon Dioxide Anion Gap BUN Creatinine Estimated GFR (MDRD) Glucose Calcium Total Bilirubin AST ALT Alkaline Phosphatase Total Protein Albumin Globulin Albumin/Globulin Ratio Lipase Urine Color Urine Clarity Urine pH Ur Specific [place] Urine Protein Urine Glucose (UA) Urine Ketones Urine Occult Blood Urine Nitrite Urine Bilirubin Urine Urobilinogen Ur Leukocyte Esterase Ur Microscopic Review Urine Culture Comments Nasal Adenovirus (PCR) NOT DETECTED Nasal B. parapertussis DNA (PCR) NOT DETECTED Nasal Coronavir 229E PCR NOT DETECTED Nasal Coronavir HKU1 PCR NOT DETECTED Nasal Coronavir NL63 PCR NOT DETECTED Nasal Coronavir OC43 PCR NOT DETECTED Nasal Enterovir/Rhinovir PCR NOT DETECTED Nasal Influenza B PCR NOT DETECTED Nasal Influenza A PCR NOT DETECTED Nasal Parainfluen 1 PCR NOT DETECTED Nasal Parainfluen 2 PCR NOT DETECTED Nasal Parainfluen 3 PCR NOT DETECTED Nasal Parainfluen 4 PCR NOT DETECTED Nasal RSV (PCR) NOT DETECTED Nasal B.pertussis DNA PCR NOT DETECTED Nasal C.pneumoniae (PCR) NOT DETECTED Carlos Human Metapneumo PCR NOT DETECTED Nasal M.pneumoniae (PCR) NOT DETECTED Nasal SARS-CoV-2 (PCR) NOT DETECTED - Rads (name of study) CT A/P Radiology: Prelim report reviewed, See rad report PD MEDICAL DECISION MAKING - ED course Complexity details: reviewed results, re-evaluated patient, considered differential, d/w patient ED course: CT A/P c/w appendicitis without complication (no evidence of perforation, abscess). Her pain was controlled with IV morphine and dilaudid although required repeated doses for recurrence of pain. Case d/w Dr. Hoff who will take patient to OR for appendectomy. Departure - Departure Disposition: ED Transfer to [facility] Clinical Impression: Appendicitis Condition: Stable Discharge Date/Time: 04/20/21 07:49
[2021-04-19] MEDS ORDERED: MORPHINE 2 MG/ML CARPUJECT IVP STA (23:55)
[2021-04-19] MEDS ORDERED: ONDANSETRON 4 MG/2 ML VIAL IVP STA (23:55)
[2021-04-19] MEDS ORDERED: SODIUM CHLORIDE 0.9% 1,000 ML IV STA (23:55)
[2021-04-20 00:21] LABS: BASOPHILS % (AUTO) 0.3 %; EOSINOPHILS # (AUTO) 0.2 10^3/uL (0.0-0.7); EOSINOPHILS % (AUTO) 1.3 %; HCT - HEMATOCRIT 39.7 % (37.0-47.0); HGB - HEMOGLOBIN 13.4 g/dL (12.0-16.0); LYMPHOCYTES # (AUTO) 1.4 10^3/uL (1.5-3.5); LYMPHOCYTES % (AUTO) 11.7 %; MEAN CORPUSCULAR HEMOGLOBIN 30.8 pg (27.0-31.0); MEAN CORPUSCULAR HGB CONC 33.8 g/dL (32.0-36.0); MEAN CORPUSCULAR VOLUME 91.3 fL (81.0-99.0); MEAN PLATELET VOLUME 9.1 fL (7.9-10.8); MONOCYTES # (AUTO) 0.8 10^3/uL (0.0-1.0); NEUTROPHILS # (AUTO) 9.3 10^3/uL (1.5-6.6); NEUTROPHILS % (AUTO) 79.4 %; PLT - PLATELET COUNT 214 10^3/uL (130-450); RED BLOOD COUNT 4.35 10^6/uL (4.20-5.40); RED CELL DISTRIBUTION WIDTH 12.5 % (12.0-15.0); WHITE BLOOD COUNT 11.7 x10^3/uL (4.8-10.8)
[2021-04-20 00:35] LABS: ALBUMIN 3.8 g/dL (3.2-5.5); ALBUMIN/GLOBULIN RATIO 1.5 (1.0-2.2); BILIRUBIN,TOTAL 0.3 mg/dL (0.2-1.0); CALCIUM 8.9 mg/dL (8.5-10.3); CREATININE 0.9 mg/dL (0.4-1.0); TOTAL PROTEIN 6.3 g/dL (6.7-8.2)
[2021-04-20] MEDS ORDERED: PROMETHAZINE INJ 25 MG in SODIUM CHLORIDE 0.9% 50 ML IV STA (01:16)
[2021-04-20] MEDS ORDERED: HYDROmorphone 1 MG/ML CARPUJECT IVP STA ×4 (01:16→07:14)
[2021-04-20] MEDS ORDERED: ONDANSETRON 4 MG/2 ML VIAL IVP STA (01:18)
[2021-04-20 01:45] LABS: BILIRUBIN,URINE NEGATIVE (NEGATIVE); CLARITY,URINE CLEAR (CLEAR); GLUCOSE, URINE (UA) NEGATIVE (NEGATIVE); KETONES,URINE (UA) NEGATIVE (NEGATIVE); LEUKOCYTE ESTERASE, URINE NEGATIVE (NEGATIVE); NITRITE,URINE NEGATIVE (NEGATIVE); OCCULT BLOOD,URINE NEGATIVE (NEGATIVE); PROTEIN,URINE NEGATIVE (NEGATIVE); UROBILINOGEN,URINE 0.2 (NORMAL) E.U./dL (NORMAL)
--- NOTE | 2021-04-20 02:03 | CT Report ---
PROCEDURE: CT abdomen and pelvis without contrast INDICATIONS: Generalized abdominal pain TECHNIQUE: Noncontrast 5 mm thick sections acquired from the diaphragms to the symphysis. 5 mm coronal and sagi ttal reformats were then performed. For radiation dose reduction, the following was used: automated exposure control, adjustment of mA and/or kV according to patient size. COMPARISON: 11/25/2016 FINDINGS: Image quality: Excellent. ABDOMEN: Lung bases: Lung bases are clear. Heart size is normal. Solid organs: Liver and spleen are normal in size. Gallbladder unremarkable Pancreas is normal in contours. No adrenal nodules. Kidneys are normal in size, without hydronephrosis or nephrolithiasis . Peritoneum and bowel: Unenhanced bowel loops demonstrate normal wall thickness and caliber. No free fluid or air. The appendix is dilated and inflamed measuring up to 1.1 cm in diameter. Appendicolith noted at the b ase. No abscess or free air present. Multiple diverticula arise from the sigmoid colon without eviden ce of diverticulitis. Moderate fecal debris in the colon. Nodes and vessels: No retroperitoneal or mesenteric adenopathy by size criteria. Aorta and inferior vena cava are normal in caliber. Miscellaneous: No ventral hernias. PELVIS: Genitourinary: Bladder wall thickness is normal. Hysterectomy. Miscellaneous: No inguinal hernias or adenopathy. Bones: No suspicious bony lesions. No vertebral body compression fractures. IMPRESSION: 1. Acute uncomplicated appendicitis without evidence of abscess or free air. 5 mm appendicolith noted . 2. Diverticulosis without evidence of diverticulitis. Moderate to fecal debris throughout the colon. Critical findings were discussed with Dr. Ivy at 2:00 AM 04/20/2021 Reviewed by: Samuel Howard MD on 04/20/2021 2:02 AM PST Approved by: Samuel Howard MD on 04/20/2021 2:02 AM PST Station ID: [id number]
[2021-04-20] MEDS ORDERED: PIPERACILLIN/TAZOBACTAM 3.375 GM in SODIUM CHLORIDE 0.9% MINIBAG 100 ML IV STA (02:23)
[2021-04-20 04:02] LABS: B. PARAPERTUSSIS- RESP PCR PAN NOT DETECTED; B. PERTUSSIS- RESP PCR PANEL NOT DETECTED; C. PNEUMONIAE- RESP PCR PANEL NOT DETECTED; CORONAVIRUS 229E-RESP PCR NOT DETECTED; CORONAVIRUS HKU1-RESP PCR NOT DETECTED; CORONAVIRUS NL63-RESP PCR NOT DETECTED; CORONAVIRUS OC43-RESP PCR NOT DETECTED; HUMAN METAPNEUMOVIRUS NOT DETECTED; INFLUENZA A- RESP PCR PANEL NOT DETECTED; INFLUENZA B - RESP PCR PANEL NOT DETECTED; M. PNEUMONIAE- RESP PCR PANEL NOT DETECTED; PARAINFLUENZA VIRUS 1 NOT DETECTED; PARAINFLUENZA VIRUS 2 NOT DETECTED; PARAINFLUENZA VIRUS 3 NOT DETECTED; PARAINFLUENZA VIRUS 4 NOT DETECTED; RHINOVIRUS/ENTEROVIRUS NOT DETECTED; RSV- RESP PCR PANEL NOT DETECTED; SARS-CoV-2 -RESP PCR PANEL NOT DETECTED
[2021-04-20] MEDS ORDERED: SODIUM CHLORIDE 0.9% 1,000 ML IV STA ×2 (05:11)
--- NOTE | 2021-04-20 06:43 | ANESTHESIA ---
Pre-Anesthesia VS, & Labs - Diagnosis acute appendicitis - Procedure laparoscopic appendectomy Vital Signs: Temp Pulse Resp BP Pulse Ox 37.1 C 84 16 117/76 94 04/20/21 02:12 04/20/21 05:27 04/20/21 05:27 04/20/21 05:27 04/20/21 05:27 Height: 5 ft 10 in Weight (kg): 81.647 kg Body Mass Index: 25.8 BMI Classification: Overweight - NPO >8 hours - Is Patient ?: No - Lab Results Current Lab Results: Laboratory Tests 04/20/21 00:15: Sodium 136, Potassium 4.0, Chloride 103, Carbon Dioxide 24, Anion Gap 9.0, BUN 16, Creatinine 0.9, Estimated GFR (MDRD) 66 L, Glucose 107 H, Calcium 8.9, Total Bilirubin 0.3, AST 18, ALT 19, Alkaline Phosphatase 55, Total Protein 6.3 L, Albumin 3.8, Globulin 2.5, Albumin/Globulin Ratio 1.5, Lipase 35 04/20/21 00:15: WBC 11.7 H, RBC 4.35, Hgb 13.4, Hct 39.7, MCV 91.3, MCH 30.8, MCHC 33.8, RDW 12.5, Plt Count 214, MPV 9.1, Neut # (Auto) 9.3 H, Lymph # (Auto) 1.4 L, [place]mer[place] # (Auto) 0.8, Eos # (Auto) 0.2, Baso # (Auto) 0.0, Absolute Nucleated RBC 0.00, Nucleated RBC % 0.0 Lab results reviewed: Yes Fish Bones: 04/20/21 00:15 04/20/21 00:15 Home Medications and Allergies Home Medications: Ambulatory Orders buPROPion [Wellbutrin Sr] 150 mg PO DAILY 04/19/21 Active Medications Sodium Chloride (Normal Saline 0.9%) 1,000 mls @ 150 mls/hr IV .Q6H40M STA Stop: 04/20/21 11:50 buPROPion [Wellbutrin Sr] 150 mg PO DAILY 04/19/21 Allergies/Adverse Reactions: Allergies Allergy/AdvReac Type Severity Reaction Status Date / Time contrast dye Allergy Unknown Rash Uncoded 04/20/21 06:21 Anes History & Medical History - Anesthetic History Anesthesia Complications: reports: No previous complications Family history of Anesthesia Complications: Denies Family history of Malignant Hyperthermia: Denies - Medical History Cardiovascular: reports: None Pulmonary: reports: Asthma, Other Gastrointestinal: reports: None Urinary: reports: None Musculoskeletal: reports: Osteoarthritis Endocrine/Autoimmune: reports: None Skin: reports: None Smoking Status: Current every day smoker - Surgical History Cardiothoracic: reports: Other (hx collapsed lung requiring surgery, pt states her "heart stopped during procedure but it started again". No cardiac history, SR, no hx xhest pain or arrhythymia) Gynecologic: reports: Tubal ligation, Hysterectomy Orthopedic: reports: Arthroscopic surgery, Other Exam General: Alert, Oriented x3, Cooperative Dental: WNL Mouth Openin Fingerbreadth Neck Mobility: Normal Mallampati classification: II Thyromental Distance: 4-6 cm Respiratory: Lungs clear, Normal breath sounds, No respiratory distress Cardiovascular: Regular rate Neurological: Normal speech Mental/Cognitive Status: Alert/Oriented X3, Normal for patient Cognitive Status: Within normal limits Plan Anesthesia Type: General Consent for Procedure(s) Verified and Reviewed: Yes Code Status: Attempt Resuscitation ASA classification: 2-Mild systemic disease Is this case an emergency?: No
[2021-04-20] MEDS ORDERED: MIDAZOLAM 2 MG/2 ML VIAL ONE (07:30)
[2021-04-20] MEDS ORDERED: fentaNYL 100 MCG/2 ML VIAL ONE (07:31)
[2021-04-20] MEDS ORDERED: ONDANSETRON 4 MG/2 ML VIAL ONE (07:31)
[2021-04-20] MEDS ORDERED: ROCURONIUM 50 MG/5 ML VIAL ONE (07:31)
[2021-04-20] MEDS ORDERED: PROPOFOL 200 MG/20 ML VIAL IVP ONE (07:31)
[2021-04-20] MEDS ORDERED: LIDOCAINE-MPF 2% 5 ML VIAL ONE (07:31)
[2021-04-20] MEDS ORDERED: BUPIVACAINE 0.5% PF 10 ML VIAL ONE (07:44)
[2021-04-20] MEDS ORDERED: LIDOCAINE MPF 2%-EPI 1:200000 20 ML VIAL ONE (07:44)
--- NOTE | 2021-04-20 08:05 | HISTORY & PHYSICAL EXAMINATION ---
HPI - Admitted From Admitted from: ED - History Obtained From History obtained from: Patient Exam limitations: No limitations - History of Present Illness Severity at the worst: reports: Moderate Pain Quality: reports: Sharp Context-Pain started w/: reports: Movement Timing: reports: Abrupt onset Duration: reports: Hours: Improved with: reports: Nothing Worsened by: reports: Exertion, Movement HPI Comment/Other: Nadeem is a pleasant 50-year-old lady who works at [employer] in [place].She reports that she was awakened from a sound sleep last evening at 8:00 with acute right lower quadrant pain. This is the first time she has experienced such pain.Her past surgical history includes an oophorectomy and tubal ligation.She says she has to be at work at 4 AM in [place] so she tends to go to bed about 4:00 in the afternoon.There is no associated fever but she has had some nausea. No vomiting. 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 No cardiac history, SR, no hx xhest pain or arrhythymia) Social & Family Hx - Living Situation Living Arrangement: At home - Social History Does the pt smoke?: Yes Smoking Status: Current every day smoker Does the pt drink ETOH?: Yes Does the pt have substance abuse?: No - POLST Patient has POLST: No Meds/Allgy - Home Medications Home Medications: Ambulatory Orders Medication Instructions Recorded Confirmed Albuterol Sulf [Ventolin Hfa 1 - 2 puffs INH Q4HR PRN #1 inhaler 09/29/17 04/19/21 Inhaler] buPROPion [Wellbutrin Sr] 150 mg PO DAILY 04/19/21 04/19/21 - Allergies Allergies/Adverse Reactions: Allergies Allergy/AdvReac Type Severity Reaction Status Date / Time contrast dye Allergy Unknown Rash Uncoded 04/20/21 06:21 Review of Systems - Constitutional Constitutional: reports: Fatigue - Gastrointestinal Gastrointestinal: reports: Abdominal pain, Nausea Exam - Vital Signs Reviewed Vital Signs: Yes Vital Signs: Vital Signs x48h Temp Pulse Resp BP Pulse Ox 04/20/21 07:48 79 16 127/77 94 04/20/21 05:27 84 16 117/76 94 04/20/21 02:12 37.1 C 81 18 115/74 95 - Physical Exam General Appearance: positive: Alert, Mild distress Eyes Bilateral: positive: Normal inspection, PERRL, EOMI ENT: positive: ENT inspection nml, Pharynx nml, No signs of dehydration Neck: positive: Nml inspection, Thyroid nml, No JVD, Trachea midline Respiratory: positive: Chest non-tender, No respiratory distress, Breath sounds nml Cardiovascular: positive: Regular rate & rhythm, No murmur Abdomen: positive: Tenderness, Guarding, Rebound Back: positive: Nml inspection Skin: positive: Color nml Neurologic/Psychiatric: positive: Oriented x3 Results - Lab Results Lab results reviewed: Yes Fish Bones: 04/20/21 00:15 04/20/21 00:15 Other Lab Results: Lab Results x24hrs 04/20/21 04/20/21 04/20/21 Range/Units 03:02 01:25 00:15 WBC (4.8-10.8) x10^3/uL RBC (4.20-5.40) 10^6/uL Hgb (12.0-16.0) g/dL Hct (37.0-47.0) % MCV (81.0-99.0) fL MCH (27.0-31.0) pg MCHC (32.0-36.0) g/dL RDW (12.0-15.0) % Plt Count (130-450) 10^3/uL MPV (7.9-10.8) fL Neut # (Auto) (1.5-6.6) 10^3/uL Lymph # (Auto) (1.5-3.5) 10^3/uL Wilcox # (Auto) (0.0-1.0) 10^3/uL Eos # (Auto) (0.0-0.7) 10^3/uL Baso # (Auto) (0.0-0.1) 10^3/uL Absolute Nucleated RBC x10^3/uL Nucleated RBC % /100WBC Sodium 136 (135-145) mmol/L Potassium 4.0 (3.5-5.0) mmol/L Chloride 103 (101-111) mmol/L Carbon Dioxide 24 (21-32) mmol/L Anion Gap 9.0 (6-13) BUN 16 (6-20) mg/dL Creatinine 0.9 (0.4-1.0) mg/dL Estimated GFR (MDRD) 66 L (>89) Glucose 107 H (70-100) mg/dL Calcium 8.9 (8.5-10.3) mg/dL Total Bilirubin 0.3 (0.2-1.0) mg/dL AST 18 (10-42) IU/L ALT 19 (10-60) IU/L Alkaline Phosphatase 55 (42-121) IU/L Total Protein 6.3 L (6.7-8.2) g/dL Albumin 3.8 (3.2-5.5) g/dL Globulin 2.5 (2.1-4.2) g/dL Albumin/Globulin Ratio 1.5 (1.0-2.2) Lipase 35 (22-51) U/L Urine Color YELLOW Urine Clarity CLEAR (CLEAR) Urine pH 7.0 (5.0-7.5) PH Ur Specific [place] 1.020 (1.002-1.030) Urine Protein NEGATIVE (NEGATIVE) mg/dL Urine Glucose (UA) NEGATIVE (NEGATIVE) mg/dL Urine Ketones NEGATIVE (NEGATIVE) mg/dL Urine Occult Blood NEGATIVE (NEGATIVE) Urine Nitrite NEGATIVE (NEGATIVE) Urine Bilirubin NEGATIVE (NEGATIVE) Urine Urobilinogen 0.2 (NORMAL) (NORMAL) E.U./dL Ur Leukocyte Esterase NEGATIVE (NEGATIVE) Ur Microscopic Review NOT INDICATED Urine Culture Comments NOT INDICATED Nasal Adenovirus (PCR) NOT DETECTED Nasal B. parapertussis DNA (PCR) NOT DETECTED Nasal Coronavir 229E PCR NOT DETECTED Nasal Coronavir HKU1 PCR NOT DETECTED Nasal Coronavir NL63 PCR NOT DETECTED Nasal Coronavir OC43 PCR NOT DETECTED Nasal Enterovir/Rhinovir PCR NOT DETECTED Nasal Influenza B PCR NOT DETECTED Nasal Influenza A PCR NOT DETECTED Nasal Parainfluen 1 PCR NOT DETECTED Nasal Parainfluen 2 PCR NOT DETECTED Nasal Parainfluen 3 PCR NOT DETECTED Nasal Parainfluen 4 PCR NOT DETECTED Nasal RSV (PCR) NOT DETECTED Nasal B.pertussis DNA PCR NOT DETECTED Nasal C.pneumoniae (PCR) NOT DETECTED Carlos Human Metapneumo PCR NOT DETECTED Nasal M.pneumoniae (PCR) NOT DETECTED Nasal SARS-CoV-2 (PCR) NOT DETECTED 04/20/21 Range/Units 00:15 WBC 11.7 H (4.8-10.8) x10^3/uL RBC 4.35 (4.20-5.40) 10^6/uL Hgb 13.4 (12.0-16.0) g/dL Hct 39.7 (37.0-47.0) % MCV 91.3 (81.0-99.0) fL MCH 30.8 (27.0-31.0) pg MCHC 33.8 (32.0-36.0) g/dL RDW 12.5 (12.0-15.0) % Plt Count 214 (130-450) 10^3/uL MPV 9.1 (7.9-10.8) fL Neut # (Auto) 9.3 H (1.5-6.6) 10^3/uL Lymph # (Auto) 1.4 L (1.5-3.5) 10^3/uL Wilcox # (Auto) 0.8 (0.0-1.0) 10^3/uL Eos # (Auto) 0.2 (0.0-0.7) 10^3/uL Baso # (Auto) 0.0 (0.0-0.1) 10^3/uL Absolute Nucleated RBC 0.00 x10^3/uL Nucleated RBC % 0.0 /100WBC Sodium (135-145) mmol/L Potassium (3.5-5.0) mmol/L Chloride (101-111) mmol/L Carbon Dioxide (21-32) mmol/L Anion Gap (6-13) BUN (6-20) mg/dL Creatinine (0.4-1.0) mg/dL Estimated GFR (MDRD) (>89) Glucose (70-100) mg/dL Calcium (8.5-10.3) mg/dL Total Bilirubin (0.2-1.0) mg/dL AST (10-42) IU/L ALT (10-60) IU/L Alkaline Phosphatase (42-121) IU/L Total Protein (6.7-8.2) g/dL Albumin (3.2-5.5) g/dL Globulin (2.1-4.2) g/dL Albumin/Globulin Ratio (1.0-2.2) Lipase (22-51) U/L Urine Color Urine Clarity (CLEAR) Urine pH (5.0-7.5) PH Ur Specific [place] (1.002-1.030) Urine Protein (NEGATIVE) mg/dL Urine Glucose (UA) (NEGATIVE) mg/dL Urine Ketones (NEGATIVE) mg/dL Urine Occult Blood (NEGATIVE) Urine Nitrite (NEGATIVE) Urine Bilirubin (NEGATIVE) Urine Urobilinogen (NORMAL) E.U./dL Ur Leukocyte Esterase (NEGATIVE) Ur Microscopic Review Urine Culture Comments Nasal Adenovirus (PCR) Nasal B. parapertussis DNA (PCR) Nasal Coronavir 229E PCR Nasal Coronavir HKU1 PCR Nasal Coronavir NL63 PCR Nasal Coronavir OC43 PCR Nasal Enterovir/Rhinovir PCR Nasal Influenza B PCR Nasal Influenza A PCR Nasal Parainfluen 1 PCR Nasal Parainfluen 2 PCR Nasal Parainfluen 3 PCR Nasal Parainfluen 4 PCR Nasal RSV (PCR) Nasal B.pertussis DNA PCR Nasal C.pneumoniae (PCR) Carlos Human Metapneumo PCR Nasal M.pneumoniae (PCR) Nasal SARS-CoV-2 (PCR) - Diagnostic Imaging Results Diagnostic Imaging Results: positive: Final report reviewed (Early acute appendicitis with appendicolith) - EKG Results EKG Interpreted Independently: No Impression/Plan - Problem List Problem List: Recommended laparoscopy with appendectomy this morning. We discussed the risks, benefits, and alternatives to the procedure and the patient is expressed a desire to complete the procedure today. Both verbal and written consent were obtained.
[2021-04-20] MEDS ORDERED: BUPIVACAINE 0.5% PF 10 ML VIAL SUBQ ONE (08:26)
[2021-04-20] MEDS ORDERED: LIDOCAINE 2%-EPI 1:100000 20 ML MDV SUBQ ONE (08:26)
[2021-04-20] MEDS ORDERED: ceFAZolin 1 GM VIAL ONE (08:27)
[2021-04-20] MEDS ORDERED: ACETAMINOPHEN 1,000 MG/100 ML 100 ML IV ONE (08:30)
[2021-04-20] MEDS ORDERED: SUGAMMADEX 200 MG/2 ML VIAL IVP ONE (08:55)
[2021-04-20] MEDS ORDERED: IBUPROFEN 600 MG TABLET PO PRN (08:58)
[2021-04-20] MEDS ORDERED: oxyCODONE 5 MG TABLET PO PRN (08:58)
[2021-04-20] MEDS ORDERED: ACETAMINOPHEN 325 MG TABLET PO PRN (08:58)
[2021-04-20] MEDS ORDERED: ONDANSETRON 4 MG/2 ML VIAL IVP PRN ×2 (08:58→10:59)
--- NOTE | 2021-04-20 08:58 | OPERATIVE REPORT ---
Operative Report - General Admit Date: 04/20/21 Procedure Date: 04/20/21 Planned Procedure: Laparoscopic appendectomy Pre-Op Diagnosis: Acute appendicitis Procedure Performed: Laparoscopic appendectomy Post Op Diagnosis: Acute suppurative appendicitis - Procedure Note Primary Surgeon: Luis Eduardo Anesthesia Provider: Eric Pathology: Appendix to pathology in formalin Estimated Blood Loss (mL): 10 Findings: Acute suppurative appendicitis without perforation Complications: None apparent - Other Other Information/Narrative: After obtaining informed consent, the patient is brought to the operating room and placed in the supine position on the operating table. Following successful induction of general endotracheal anesthesia, appropriate padding of all bony prominences, and placement of appropriate monitors, the abdomen was prepped and draped in the standard surgical fashion. A timeout was held per scope protocol. All elements of the surgical safety checklist were followed before, during, and after the procedure. Following infiltration with local anesthetic to create a field block, an incision was created inferior to the umbilicus and carried down through the skin and subcutaneous tissue to reveal the fascia below. 2-0 Vicryl retention sutures were placed on either side of the midline and the abdomen was entered under direct vision using a 15 blade scalpel. A 10 mm blunt Trinidad balloon trocar was placed in the abdominal cavity and it was insufflated to 15 mmHg pressure. The patient was placed in Trendelenburg position with the left side rotated toward the floor. The camera was placed in the abdominal cavity and we immediately visualized the cecum in the right lower quadrant. It was rotated medially to reveal a somewhat dilated and turgid appendix. The appendix was grasped and elevated revealing its attachment to the cecum. A window was created in the mesoappendix at this location. A laparoscopic stapling device was used to ligate the appendix and liberated from its attachment to the cecum. An additional load of the device were used to divide its mesentery.The appendix was placed in an Endo Catch bag and removed via the umbilical port with a camera in the epigastric position. The camera was replaced in the operative site examined. It was irrigated with warm saline solution and aspirated free of all fluid and particulate matter. The table was flattened and the abdomen evaluated once again. The trochars were removed under direct vision and abdomen was desufflated. The umbilical incision was closed with interrupted Vicryl suture and Monocryl stitches were placed in the skin. All sponge, needles, and instrument counts were correct at the conclusion of the case. The patient was allowed to wake from anesthesia without difficulty and taken to the postanesthesia care unit in good condition.
[2021-04-20] MEDS ORDERED: LACTATED RINGERS 1,000 ML IV ONE (09:01)
--- NOTE | 2021-04-20 09:31 | ANESTHESIA POST OP EVALUATION ---
Anesthesia Post Eval - Post Anesthesia Eval Vitals: Last Vital Signs Temp 36.4 C L 04/20/21 09:15 Pulse 78 04/20/21 09:25 Resp 13 04/20/21 09:25 BP 102/67 04/20/21 09:25 Pulse Ox 95 04/20/21 09:25 CV Function Including HR & BP: Stable Pain Control: Satisfactory Nausea & Vomiting: Negative Mental Status: Baseline Respiratory Status: Airway Patent Hydration Status: Satisfactory Anesthesia Complications: None
[2021-04-20 10:43] VITALS: BP 108/64
[2021-04-20] MEDS ORDERED: ATROPINE ABBOJECT 1 MG/10 ML SYRINGE IVP PRN (10:59)
[2021-04-20] MEDS ORDERED: MORPHINE 2 MG/ML CARPUJECT IVP PRN (10:59)
[2021-04-20] MEDS ORDERED: fentaNYL 100 MCG/2 ML VIAL IVP PRN (10:59)
[2021-04-20] MEDS ORDERED: NALOXONE 0.4 MG/ML VIAL IVP PRN (10:59)
[2021-04-20] MEDS ORDERED: HYDROmorphone 0.5 MG/0.5 ML SYRINGE IVP PRN (10:59)
[2021-04-20] MEDS ORDERED: LACTATED RINGERS 1,000 ML IV SCH (11:00)
--- NOTE | 2021-04-20 12:03 | PHARMACY PROGRESS NOTE ---
- Best Possible Medication History Admit Date and Time: 04/20/21 0700 Processed by: Nursing Medication History completed: Yes Patient Interview: Completed As the person ultimately responsible for medication therapy, providers are able to order a medication from an existing home medication list in [facility] via the "Reconcile Routine" prior to Confirmation of that medication by sales support assistant. Such practice is discouraged except when the physician, in their clinical judg ment, deems that a medical need exists for a medication without regard to previous use.
== END 2021-04-20 10:50 | disposition home or self-care (01) ==
LOC: EDUNIT# → SUPCPDRO 23:29 → ED 23:29 → SDS 04-20 07:00 → MS3 04-20 07:00 → UNDOADMIN 04-20 07:00 → MS3 04-20 07:01 → UNDODISIN 04-20 10:50 → SDS 04-20 10:50
PROVIDERS: ATTEND Surgery
PROC: 0DTJ4ZZ Resection of Appendix, Percutaneous Endoscopic Approach (ICD-10-PCS; principal; 2021-04-19)
DX: K35.890 Other acute appendicitis without perforation or gangrene (principal); J45.909 Unspecified asthma, uncomplicated; F17.200 Nicotine dependence, unspecified, uncomplicated; Z79.899 Other long term (current) drug therapy; Z20.822 Contact with and (suspected) exposure to COVID-19
CPT/HCPCS: 0202U; 36415; 44970; 74176; 80053; 81003; 83690; 85025; 96361; 96365; 96375; 96376; 99285; J0131; J1170; J7120; 81001; 87086

== ENCOUNTER 2021-06-08 07:20 | Outpatient (CLI) | payer OTHER | END 2021-06-08 23:59 | disposition home or self-care (01) | LOC: LAB.N 07:20 | PROVIDERS: ATTEND Physician Assistant | DX: R53.83 Other fatigue (principal); R53.81 Other malaise; Z20.822 Contact with and (suspected) exposure to COVID-19 ==

== ENCOUNTER 2021-06-20 08:00 | Outpatient (CLI) | payer OTHER | END 2021-06-20 23:59 | disposition home or self-care (01) | LOC: LAB.N 08:00 | PROVIDERS: ATTEND Physician Assistant | DX: U07.1 COVID-19 (principal) ==

== ENCOUNTER 2021-12-18 07:12 | Outpatient (CLI) | payer OTHER ==
--- NOTE | 2021-12-18 13:42 | XRAY Report ---
PROCEDURE: Shoulder 2 View RT INDICATIONS: R SHOULDER PX TECHNIQUE: 2 views of the shoulder were acquired. COMPARISON: None. FINDINGS: Bones: No acute fractures or dislocations. No suspicious bony lesions. Visualized ribs appear inta ct. Moderate degenerative changes of the right acromioclavicular joint with undersurface irregularity . Coracoclavicular and acromioclavicular intervals are normal. Soft tissues: No suspicious soft tissue calcifications. IMPRESSION: Right shoulder without acute fracture dislocation. Moderate degenerative changes of the right acromioclavicular joint with undersurface spurring. Reviewed by: Nelson Sue MD on 12/18/2021 1:41 PM PDT Approved by: Nelson Sue MD on 12/18/2021 1:41 PM PDT Station ID: [id number]
== END 2021-12-18 07:13 | disposition home or self-care (01) ==
LOC: DI.N 07:12
PROVIDERS: ATTEND Nurse Practitioner
DX: M19.011 Primary osteoarthritis, right shoulder (principal)

== ENCOUNTER 2021-12-21 08:27 | Day surgery (SDC) | payer OTHER ==
[~2021-12-21 08:27] MED LIST: LIDOCAINE-MPF 2% 5 ML VIAL ONE; PROPOFOL 500 MG/50 ML 500 MG/50 ML VIAL ONE
[2021-12-21] MEDS ORDERED: LACTATED RINGERS 1,000 ML IV ONE ×2 (08:31→10:18)
--- NOTE | 2021-12-21 09:04 | ANESTHESIA ---
Pre-Anesthesia VS, & Labs - Diagnosis screening - Procedure colonoscopy Vital Signs: Temp Pulse Resp BP Pulse Ox 36.4 C L 75 16 127/85 H 95 12/21/21 08:32 12/21/21 08:32 12/21/21 08:32 12/21/21 08:32 12/21/21 08:32 Height: 5 ft 10 in Weight (kg): 77.8 kg Body Mass Index: 24.6 BMI Classification: Healthy weight - NPO Other (prep finished at 5am) - Is Patient ?: No Home Medications and Allergies Home Medications: Ambulatory Orders Clobetasol 0.05% Oint [Temovate 0.05% Oint] 1 applic TOP DAILY 12/20/[address] [Voltaren] 1 tab PO DAILY 12/20/21 Risankizumab-Rzaa [Skyrizi] 1 ea IM DAILY 12/20/21 Terbinafine [Lamisil] 1 each PO DAILY 12/20/21 buPROPion [Wellbutrin Sr] 150 mg PO DAILY 04/19/21 Clobetasol 0.05% Oint [Temovate 0.05% Oint] 1 applic TOP DAILY 12/20/[address] [Voltaren] 1 tab PO DAILY 12/20/21 Risankizumab-Rzaa [Skyrizi] 1 ea IM DAILY 12/20/21 Terbinafine [Lamisil] 1 each PO DAILY 12/20/21 Allergies/Adverse Reactions: Allergies Allergy/AdvReac Type Severity Reaction Status Date / Time contrast dye Allergy Unknown Rash Uncoded 05/23/21 12:16 Anes History & Medical History - Anesthetic History Anesthesia Complications: reports: No previous complications - Medical History Cardiovascular: reports: None Pulmonary: reports: Asthma, Other Gastrointestinal: reports: None Urinary: reports: None Musculoskeletal: reports: Osteoarthritis Endocrine/Autoimmune: reports: None Skin: reports: Psoriasis Smoking Status: Current every day smoker Psychosocial: reports: Alcohol (rare) History of Cancer?: No - Surgical History General: reports: Appendectomy Cardiothoracic: reports: Other Gynecologic: reports: Tubal ligation, Hysterectomy Orthopedic: reports: Arthroscopic surgery, Other Exam General: Alert, Oriented x3 Dental: WNL Mouth Opening: Greater than 4 Fingerbreadths Mallampati classification: II Thyromental Distance: greater than 6 cm Respiratory: Lungs clear Cardiovascular: Regular rate, Normal S1, Normal S2 Plan Anesthesia Type: Total IV Consent for Procedure(s) Verified and Reviewed: Yes Code Status: Attempt Resuscitation ASA classification: 2-Mild systemic disease Is this case an emergency?: No
[2021-12-21] MEDS ORDERED: ONDANSETRON 4 MG/2 ML VIAL IVP PRN (09:05)
[2021-12-21] MEDS ORDERED: ONDANSETRON 4 MG/2 ML VIAL ONE (09:13)
[2021-12-21] MEDS ORDERED: PROPOFOL 200 MG/20 ML VIAL IVP ONE ×2 (09:46→10:18)
[2021-12-21 12:06] VITALS: BP 118/78
--- NOTE | 2021-12-21 12:14 | ANESTHESIA POST OP EVALUATION ---
Anesthesia Post Eval - Post Anesthesia Eval Vitals: Last Vital Signs Temp 36 C L 12/21/21 11:15 Pulse 60 12/21/21 11:30 Resp 16 12/21/21 11:30 BP 118/78 12/21/21 11:30 Pulse Ox 100 12/21/21 11:30 CV Function Including HR & BP: Stable Pain Control: Satisfactory Nausea & Vomiting: Negative Mental Status: Baseline Respiratory Status: Airway Patent Hydration Status: Satisfactory Anesthesia Complications: None
== END 2021-12-21 08:28 | disposition home or self-care (01) ==
LOC: SDS 08:27
PROVIDERS: ATTEND Surgery
PROC: 0DBN8ZX Excision of Sigmoid Colon, Via Natural or Artificial Opening Endoscopic, Diagnostic (ICD-10-PCS; 2021-12-21)
PROC: 0DBP8ZX Excision of Rectum, Via Natural or Artificial Opening Endoscopic, Diagnostic (ICD-10-PCS; 2021-12-21)
PROC: 0DBK8ZX Excision of Ascending Colon, Via Natural or Artificial Opening Endoscopic, Diagnostic (ICD-10-PCS; principal; 2021-12-21 09:30)
DX: Z12.11 Encounter for screening for malignant neoplasm of colon (principal); K57.30 Diverticulosis of large intestine without perforation or abscess without bleeding; K62.1 Rectal polyp; K63.5 Polyp of colon; D12.2 Benign neoplasm of ascending colon; D37.4 Neoplasm of uncertain behavior of colon; J45.909 Unspecified asthma, uncomplicated; I10 Essential (primary) hypertension; F17.200 Nicotine dependence, unspecified, uncomplicated
CPT/HCPCS: 45380; 45385; J7120

== ENCOUNTER 2022-04-15 08:00 | Outpatient (CLI) | payer OTHER ==
--- NOTE | 2022-04-15 12:19 | XRAY Report ---
PROCEDURE: Lumbar Spine 2 View INDICATIONS: LOW BACK PX TECHNIQUE: 3 views of the lumbar spine were acquired. COMPARISON: None. FINDINGS: Bones: 5 [id number] vertebrae are present. There is normal bony alignment. No vertebral body compression fractures. No suspicious bony lesions. Soft tissues: Overlying bowel gas pattern is normal. No suspicious soft tissue calcifications. Mod erate fecal debris throughout the colon IMPRESSION: Unremarkable lumbar spine radiographs. Moderate fecal debris throughout the colon Reviewed by: Samuel Howard MD on 04/15/2022 11:17 AM [facility] Approved by: Samuel Howard MD on 04/15/2022 11:17 AM [facility] Station ID: [id number]
== END 2022-04-15 23:59 | disposition home or self-care (01) ==
LOC: DI.N 08:00
PROVIDERS: ATTEND Physician Assistant
DX: M54.50 Low back pain, unspecified (principal)

== ENCOUNTER 2023-12-23 08:00 | Outpatient (CLI) | payer BC ==
[2023-12-23 18:01] LABS: BASOPHILS % (AUTO) 0.5 %; EOSINOPHILS # (AUTO) 0.2 10^3/uL (0.0-0.7); EOSINOPHILS % (AUTO) 3.8 %; HCT - HEMATOCRIT 44.9 % (37.0-47.0); HGB - HEMOGLOBIN 14.6 g/dL (12.0-16.0); LYMPHOCYTES % (AUTO) 33.6 %; MEAN CORPUSCULAR HEMOGLOBIN 29.1 pg (27.0-31.0); MEAN CORPUSCULAR HGB CONC 32.5 g/dL (32.0-36.0); MEAN CORPUSCULAR VOLUME 89.6 fL (81.0-99.0); MEAN PLATELET VOLUME 9.6 fL (7.9-10.8); MONOCYTES # (AUTO) 0.4 10^3/uL (0.0-1.0); MONOCYTES % (AUTO) 7.4 %; NEUTROPHILS # (AUTO) 3.2 10^3/uL (1.5-6.6); NEUTROPHILS % (AUTO) 54.4 %; PLT - PLATELET COUNT 269 10^3/uL (130-450); RED BLOOD COUNT 5.01 10^6/uL (4.20-5.40); RED CELL DISTRIBUTION WIDTH 13.3 % (12.0-15.0); WHITE BLOOD COUNT 5.8 x10^3/uL (4.8-10.8)
[2023-12-23 18:25] LABS: ALBUMIN 4.5 g/dL (3.2-5.5); ALBUMIN/GLOBULIN RATIO 1.8 (1.0-2.2); BILIRUBIN,TOTAL 0.4 mg/dL (0.2-1.0); CALCIUM 10.1 mg/dL (8.5-10.3); CREATININE 0.9 mg/dL (0.6-1.3); MAGNESIUM 2.1 mg/dL (1.7-2.3); POTASSIUM 4.1 mmol/L (3.5-4.5)
[2023-12-23 18:34] LABS: THYROID STIMULATING HORMONE 1.18 uIU/mL (0.34-5.60)
== END 2023-12-23 23:59 | disposition home or self-care (01) ==
LOC: LAB.N 08:00
PROVIDERS: ATTEND Nurse Practitioner
DX: R53.83 Other fatigue (principal)
CPT/HCPCS: 36415; 80053; 83735; 83880; 84436; 84439; 84443; 84481; 85025; 85379; 86800

== ENCOUNTER 2024-01-12 09:50 | Emergency (ER) | payer BC ==
--- NOTE | 2024-01-12 11:12 | ED Physician Documentation ---
History of Present Illness - Stated complaint Stated Complaint: RT LEG/ARM NUMBNESS,NUNEZ,SOA - Chief complaint Chief Complaint: Neuro - History obtained from History obtained from: Patient - Additonal information Additional information: Patient is a 53-year-old female presenting to the emergency department with history of restless leg syndrome history of depression. Patient presents with bilateral lower leg swelling. She notes right greater than left. She notes symptoms have been going on for approximately 3 weeks. Patient developed lower leg swelling which she was started on hydrochlorothiazide by her PCP which she stopped taking about a week and a half ago as she felt it was not worse pain or improving her symptoms. She notes she continues to have bilateral leg swelling and feels short of breath at baseline. She notes she has been having trouble walking around her house and yesterday she was so fatigued she took 2 naps. She denies any fevers at home but has had intermittent chills nausea and vomiting symptoms. Her symptoms were the worst yesterday. PD PAST MEDICAL HISTORY - Past Medical History Past Medical History: Yes Cardiovascular: None Respiratory: Asthma, Other Neuro: Other Endocrine/Autoimmune: None GI: GERD AIR QUALITY CHEMIST: None : None HEENT: Other Psych: Depression Musculoskeletal: Osteoarthritis, Chronic back pain, Other Derm: None Other Past Medical History: spntaneous pneumothorax - Past Surgical History Past Surgical History: Yes General: Appendectomy Ortho: Arthroscopic surgery, Other /AIR QUALITY CHEMIST: Tubal ligation, Hysterectomy Cardiovascular: Other - Present Medications Home Medications: Ambulatory Orders Medication Instructions Recorded Confirmed Albuterol Sulf [Ventolin Hfa 1 - 2 puffs INH Q4HR PRN #1 inhaler 09/29/17 01/12/24 Inhaler] Diclofenac Sodium Dr [Voltaren] 75 mg PO DAILY 12/20/21 01/12/24 Risankizumab-Rzaa [Skyrizi] 1 ea IM Q2M 12/20/21 01/12/24 Furosemide [Lasix] 20 mg PO DAILY #10 tablet 01/12/24 buPROPion HCL [Bupropion HCl Sr] 200 mg ORAL DAILY 01/12/24 01/12/24 rOPINIRole [Requip] 2 tab PO QPM 01/12/24 01/12/24 - Allergies Allergies/Adverse Reactions: Allergies Allergy/AdvReac Type Severity Reaction Status Date / Time contrast dye Allergy Unknown Rash Uncoded 01/12/24 10:02 - Social History Does the pt smoke?: No Smoking Status: Former smoker Does the pt drink ETOH?: Yes ETOH Use: Other Does the pt have substance abuse?: No - Immunizations Immunizations are current?: Yes - POLST Patient has POLST: No PD ED PE NORMAL - Vitals Vital signs reviewed: Yes - General General: Alert and oriented X 3 - HEENT HEENT: Atraumatic - Neck Neck: Supple, no meningeal sign - Cardiac Cardiac: RRR, No murmur - Respiratory Respiratory: Other (Rales on auscultation of the lungs) - Abdomen Abdomen: Normal bowel sounds, Non tender, Non distended - Female Female : Deferred - Rectal Rectal: Deferred - Back Back: No CVA TTP - Derm Derm: Normal color, No rash - Extremities Extremities: No deformity, Other (Minimal 1+ pitting edema to right leg no appreciable pitting edema to left leg. No warmth redness or calf tenderness noted to right leg.) - Neuro Neuro: Alert and oriented X 3, polysomnographic technologist 2-12 intact Eye Opening: Spontaneous Motor: Obeys Commands Verbal: Oriented GCS Score: 15 - Free text exam Free text exam: NIH score of 0 patient ANO x 3 appears in no acute distress able to answer questions, and serials of 7 and [id number] test intact with a stable gait on ambulation. Negative Romberg sign. Results - Vitals Vitals: Vital Signs - 24 hr 01/12/24 01/12/24 01/12/24 10:02 11:10 11:30 Temperature 36.4 C L Heart Rate 85 78 64 Respiratory 18 14 14 Rate Blood Pressure 145/94 H 127/83 H 185/82 H O2 Saturation 100 98 100 01/12/24 01/12/24 01/12/24 12:00 12:30 13:00 Temperature Heart Rate 62 61 66 Respiratory 13 11 L 17 Rate Blood Pressure 187/88 H 186/86 H 182/85 H O2 Saturation 100 97 95 01/12/24 13:30 Temperature Heart Rate 62 Respiratory 13 Rate Blood Pressure 178/84 H O2 Saturation 97 Oxygen O2 Source Room air - EKG (time done) 1141 EKG releavant findings:: EKG personally interpreted by author of this note. Relevant findings are: Rate: Rate (enter#), David, Tachy, Other Rhythm: NSR [place]: Normal QRS: Normal Ischemia: Normal ST segments, Other (No acute T wave deviation) Computer interpretation: Agree with computer - Labs Labs: Laboratory Tests 01/12/24 01/12/24 01/12/24 10:25 11:26 11:26 WBC 8.2 RBC 4.72 Hgb 13.6 Hct 42.3 MCV 89.6 MCH 28.8 MCHC 32.2 RDW 13.2 Plt Count 229 MPV 9.2 Neut # (Auto) 5.5 Lymph # (Auto) 1.9 [place] # (Auto) 0.5 Eos # (Auto) 0.2 Baso # (Auto) 0.0 Absolute Nucleated RBC 0.00 Nucleated RBC % 0.0 D-Dimer Sodium 141 Potassium 4.1 Chloride 108 Carbon Dioxide 29 Anion Gap 4.0 L BUN 10 Creatinine 1.0 Estimated GFR (MDRD) 58 L Glucose 104 POC Whole Bld Glucose Calcium 9.5 Magnesium 1.9 Total Bilirubin 0.4 AST 31 ALT 46 Alkaline Phosphatase 82 Troponin I High Sens Total Protein 6.9 Albumin 4.2 Globulin 2.7 Albumin/Globulin Ratio 1.6 Urine Color LIGHT YELLOW Urine Clarity CLEAR Urine pH 7.0 Ur Specific [place] 1.010 Urine Protein NEGATIVE Urine Glucose (UA) NEGATIVE Urine Ketones NEGATIVE Urine Occult Blood NEGATIVE Urine Nitrite NEGATIVE Urine Bilirubin NEGATIVE Urine Urobilinogen 0.2 (NORMAL) Ur Leukocyte Esterase NEGATIVE Ur Microscopic Review NOT INDICATED Urine Culture Comments NOT INDICATED 01/12/24 01/12/24 01/12/24 11:26 11:26 11:44 WBC RBC Hgb Hct MCV MCH MCHC RDW Plt Count MPV Neut # (Auto) Lymph # (Auto) [place] # (Auto) Eos # (Auto) Baso # (Auto) Absolute Nucleated RBC Nucleated RBC % D-Dimer < 200.0 L Sodium Potassium Chloride Carbon Dioxide Anion Gap BUN Creatinine Estimated GFR (MDRD) Glucose POC Whole Bld Glucose 100 Calcium Magnesium Total Bilirubin AST ALT Alkaline Phosphatase Troponin I High Sens 2.7 Total Protein Albumin Globulin Albumin/Globulin Ratio Urine Color Urine Clarity Urine pH Ur Specific [place] Urine Protein Urine Glucose (UA) Urine Ketones Urine Occult Blood Urine Nitrite Urine Bilirubin Urine Urobilinogen Ur Leukocyte Esterase Ur Microscopic Review Urine Culture Comments - Rads (name of study) Chest X-ray Relevant Findings:: EMP independent interpretation of test PD Medical Decision Making - ED course Complexity details: reviewed old records, reviewed results, re-evaluated patient ED course: Patient is a 53-year-old female presenting to the emergency department with lower leg swelling. Patient was seen a few weeks ago for similar symptoms and was started on hydrochlorothiazide. Patient stopped taking this medication week and a half ago as she did not feel was helping her leg swelling. Patient notes right is greater than left. She has no history of DVTs no history of PEs. She notes no pain to her legs she does feel tightness and yesterday felt tingling sensation from night need to right foot as well as symptoms in her right shoulder to right hand. On arrival of those symptoms seem to have resolved. Patient denies any other acute symptoms on arrival. She notes that it was not numbness only tingling sensation. She denies any headaches no vision changes. NIH score of 0 on arrival. Labs obtained here in the emergency department show no significant leukocytosis. Hemoglobin is stable. CMP shows no significant electrolyte abnormalities. Creatinine is 1.0 compared to 0.9 on 730 no significant JONAH or electrolyte abnormalities despite taking hydrochlorothiazide. EKG was obtained as patient was reporting chest pressure yesterday with her symptoms as well but shows no acute EKG changes from 2018. Troponin is negative. No need for repeat as no intermittent symptoms of chest pain and symptoms resolved over 2 hours ago. Chest x-ray obtained to evaluate for any signs of fluid overload but no acute cardiopulmonary process was noted. Discussed with patient reassuring workup here in emergency department. She does not want to continue on hydrochlorothiazide for her right leg swelling. Although minimal discussed with patient elevating legs and wearing compression stockings at home that she has not tried. Patient would like to continue on diuretics will try small dose of Lasix daily 20 mg at home. Encouraged patient to Increase potassium intake and follow-up with PCP in 1 week for recheck of creatinine levels and potassium levels. Patient understands and is agreeable with this plan will return with any new or worsening symptoms see comments below for strict return precautions. Departure - Departure Disposition: 01 Home, Self Care Clinical Impression: Leg swelling Condition: Good Comments: You were seen here in the emergency department For your lower leg swelling. Your workup here in the emergency department was reassuring your chest x-ray showed no signs of fluid overload your labs were reassuring your EKG showed no acute changes from previous ones done in the past. Your symptoms could be secondary to swelling in your legs that are causing your symptoms you should elevate your legs wear compression stockings and have started you on Lasix you should stop taking the hydrochlorothiazide have repeat labs performed by your PCP in 1 week to ensure no decrease in your potassium levels and no decrease in your blood pressure or creatinine level changes. Return with any worsening pain , swelling, nausea or vomiting, worsening leg swellig, numbness, weakness, decreased sensation, shortness of breath, vision changes, headache or any other new or worsening symptoms. Forms: PCP List
[2024-01-12 11:35] LABS: BASOPHILS % (AUTO) 0.4 %; EOSINOPHILS # (AUTO) 0.2 10^3/uL (0.0-0.7); EOSINOPHILS % (AUTO) 2.8 %; HCT - HEMATOCRIT 42.3 % (37.0-47.0); HGB - HEMOGLOBIN 13.6 g/dL (12.0-16.0); LYMPHOCYTES # (AUTO) 1.9 10^3/uL (1.5-3.5); LYMPHOCYTES % (AUTO) 22.9 %; MEAN CORPUSCULAR HEMOGLOBIN 28.8 pg (27.0-31.0); MEAN CORPUSCULAR HGB CONC 32.2 g/dL (32.0-36.0); MEAN CORPUSCULAR VOLUME 89.6 fL (81.0-99.0); MEAN PLATELET VOLUME 9.2 fL (7.9-10.8); MONOCYTES # (AUTO) 0.5 10^3/uL (0.0-1.0); MONOCYTES % (AUTO) 6.6 %; NEUTROPHILS # (AUTO) 5.5 10^3/uL (1.5-6.6); NEUTROPHILS % (AUTO) 66.9 %; PLT - PLATELET COUNT 229 10^3/uL (130-450); RED BLOOD COUNT 4.72 10^6/uL (4.20-5.40); RED CELL DISTRIBUTION WIDTH 13.2 % (12.0-15.0); WHITE BLOOD COUNT 8.2 x10^3/uL (4.8-10.8)
[2024-01-12 11:42] LABS: MAGNESIUM 1.9 mg/dL (1.7-2.3)
[2024-01-12 11:48] LABS: ALBUMIN 4.2 g/dL (3.2-5.5); ALBUMIN/GLOBULIN RATIO 1.6 (1.0-2.2); BILIRUBIN,TOTAL 0.4 mg/dL (0.2-1.0); CALCIUM 9.5 mg/dL (8.5-10.3); POTASSIUM 4.1 mmol/L (3.5-4.5); TOTAL PROTEIN 6.9 g/dL (6.4-8.9)
--- NOTE | 2024-01-12 11:56 | XRAY Report ---
PROCEDURE: Chest 1V INDICATIONS: concern for fluid overload TECHNIQUE: One view of the chest was acquired. COMPARISON: None. FINDINGS: Surgical changes and devices: None. Lungs and pleura: No pleural effusions or pneumothorax. Lungs are clear. Mediastinum: Mediastinal contours appear normal. Heart size is normal. Bones and chest wall: No suspicious bony lesions. Overlying soft tissues appear unremarkable. IMPRESSION: No acute cardiopulmonary process. Reviewed by: Hernando Carr MD on 01/12/2024 11:54 AM PDT Approved by: Hernando Carr MD on 01/12/2024 11:54 AM PDT Station ID: [id number]
[2024-01-12 12:11] LABS: BILIRUBIN,URINE NEGATIVE (NEGATIVE); GLUCOSE, URINE (UA) NEGATIVE (NEGATIVE); KETONES,URINE (UA) NEGATIVE (NEGATIVE); LEUKOCYTE ESTERASE, URINE NEGATIVE (NEGATIVE); NITRITE,URINE NEGATIVE (NEGATIVE); OCCULT BLOOD,URINE NEGATIVE (NEGATIVE); PROTEIN,URINE NEGATIVE (NEGATIVE); UROBILINOGEN,URINE 0.2 (NORMAL) E.U./dL (NORMAL)
[2024-01-12 12:33] LABS: CLARITY,URINE CLEAR (CLEAR)
[2024-01-12 13:51] VITALS: BP 125/79; O2SAT 98
== END 2024-01-12 13:53 | disposition home or self-care (01) ==
LOC: ED 09:50
DX: M79.89 Other specified soft tissue disorders (principal); G25.81 Restless legs syndrome; J45.909 Unspecified asthma, uncomplicated; Z79.899 Other long term (current) drug therapy
CPT/HCPCS: 36415; 80053; 81001; 81003; 83735; 84484; 85025; 85379; 87086; 93005; 99284

== ENCOUNTER 2024-02-10 09:13 | Outpatient (CLI) | payer BC ==
--- NOTE | 2024-02-10 09:42 | CARDIAC PROCEDURE NOTE ---
Stress Test Report Service Date: 02/10/24 Service Time: 09:30 Ordering Provider: Cassandra Nesbitt PA-C Indication for Test: Assess exertional dyspnea and intermittent chest discomfort. Significant Medical History: Nadeem is referred for a treadmill stress echocardiogram today, to assess her symptoms of exertional dyspnea and intermittent chest tightness, occurring over the past few months. 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 She says the chest discomfort is transient, feels like someone pressing on her lower chest, and resolves quickly with rest, though she sometimes experiences associated throat tightness and/or radiation of discomfort to the right arm. She denies associated diaphoresis, nausea or vomiting. Her past history is notable for psoriatic arthritis, which is reasonably controlled with a biologic agent (Skyrizi) and intermittent diclofenac. She also has recent history of diverticulitis and abdominal pain, for which she is undergoing further evaluation. She began to experience lower extremity edema earlier this year, for which she was initially trialed on HCTZ, without clear benefit. Subsequently she was provided a trial of furosemide but there was no clear benefit and her abdominal pain worsened, so the furosemide was discontinued. Somewhere along the course of these events a BNP level was obtained, which was in the normal range at 26. She finds that the best way to control her calf edema is with knee-high LIYAH stockings. She also comments that on a very recent trip away to visit her grandchildren her arthritic pain was less and her swelling decreased, to the point where she has not needed to resume using the stockings. Implied here is that she was also not on her feet all day working at [employer] Cardiac Risk Factors: Positive for ongoing nicotine use (smoked 1/2 ppd for many years, transitioned to vaping 3 yrs ago); negative for history of hypertension, hyperlipidemia, diabetes and family history of known obstructive atherosclerotic diseases. Type of Stress Test: ETT with Echocardiography Procedure: -Exercise Treadmill Test- After signing informed consent, the patient underwent echo imaging at rest and then performed treadmill exercise using a Ellis protocol. The patient exercised for 6 minutes 48 seconds and achieved a peak heart rate of 146 (87 percent predicted maximum heart rate for age), and an estimated workload of 8.3 METS. The test was terminated due to fatigue/shortness of breath. Resting heart rate: 74 Peak heart rate: 146 Normal response to exercise. Resting BP: 130/82 Peak BP: 194/85 Normal BP response to exercise. Room air oxygen saturation during exercise ranged between 93-95%. Rhythm during exercise: Sinus rhythm throughout, with rare isolated PACs but zero PVCs recorded. Symptoms: She described dyspnea with exercise that became limiting, but no chest pressure, tightness or discomfort during exercise. At the conclusion of post- exercise echo acquisition she described some lower chest tightness that immediately resolved upon sitting up. This was different than the symptoms for which the test was ordered and likely due to positional restriction. EKG at rest showed normal sinus rhythm with rSr' pattern in V1 suggestive of right ventricular conduction delay; some of her resting ST segments were below baseline by as much as 0.4 mm. EKG at peak stress showed no ischemia by EKG criteria. In Recovery HR and BP normally/rapidly decreased towards resting levels (HR was 85, BP 131/73 at 5:00). Echo imaging, performed at rest and with stress, will be reported separately. Cole Cruz MD, was present throughout this treadmill stress study and supervised it in its entirety. Summary: 1) Exercise tolerance was mildly below average for age and sex as evidenced by STEPH of 9%. 2) Borderline resting EKG, with slight ST depression in some leads as well as RV conduction delay pattern. 3) Adequate level of exercise was achieved on this treadmill stress test. 4) Normal BP response to exercise. 5) No ischemic changes by EKG criteria were seen at peak stress. 6) Interpretation of somewhat suboptimal echo images reveals normal left ventricular size, wall thickness and systolic function, with appropriate hyperdynamic augmentation of all segments with exercise, indicating no evidence of prior infarct or inducible ischemia. No significant valvular abnormality or elevation of estimated pulmonary artery systolic pressure seen on screening study. See separate report for more details. Conclusions and Recommendations: 1) Overall these are reassuring treadmill stress echocardiogram results, with no symptom, EKG or echocardiographic evidence of inducible ischemia. 2) Her exercise time was mildly below average for age and sex, and she was further encouraged to discontinue using all nicotine products and find ways to do some additional walking outside of the workplace that might include some hills, to improve her conditioning. 3) Given that most of her symptoms have occurred in the workplace, where she is asked to do some very strenuous isometric exercise tasks, it might be reasonable to explore whether a workplace accommodation could be provided for her to do some of the myriad of other tasks required of [employer] employees and leave the heavy lifting to other co-workers. 4) She describes significant snoring, though without report of observed apneas; it might be reasonable to have her undergo a sleep evaluation, to assess for occult obstructive sleep apnea.
== END 2024-02-10 09:14 | disposition home or self-care (01) ==
LOC: DI 09:13
PROVIDERS: ATTEND Physician Assistant
DX: R06.09 Other forms of dyspnea (principal); R07.89 Other chest pain; F17.290 Nicotine dependence, other tobacco product, uncomplicated
CPT/HCPCS: 93350